=== PATIENT | male | born 1975 | race Two or more races ===

== ENCOUNTER 2017-05-22 23:40 | Emergency (ER) | payer SELFPAY ==
[2017-05-22 23:52] VITALS: BP 169/107
[2017-05-22] MEDS ORDERED: Take Home: Amoxicillin/Clavulanate K 875-125 MG Tab, 2 Tab Pack PO ONE (23:58)
--- NOTE | 2017-05-23 00:15 | EDM.PDOC ---
ED HPI GENERAL MEDICAL PROBLEM - General Chief Complaint: ENT Problem Stated Complaint: congestion, dental pain Time Seen by Provider: 05/22/17 23:52 Source of Information: Reports: Patient History Limitations: Reports: No Limitations - History of Present Illness INITIAL COMMENTS - FREE TEXT/NARRATIVE: Pt. states that he has been experiencing dental pain and sinus congestion for several weeks. He has not been seen in the clinic. He denies any fever or chills. No weakness. He states that he is experiencing maxillary/upper dental and frontal sinus pain for some time. He states that his mucous is greenish in color. He denies any cough or sore throat. No abdominal pain. No nausea, vomiting, or diarrhea. Duration: Week(s):, Getting Worse Location: Reports: Face, Other (mouth) Quality: Reports: Throbbing Severity: Moderate Right Lower Tooth/Teeth Pain Score (Numeric/FACES): 6 - Related Data Allergies Allergy/AdvReac Type Severity Reaction Status Date / Time No Known Drug Allergies Allergy Other Verified 05/22/17 23:44 Home Meds: Home Meds . [No Known Home Meds] 03/26/16 [History] Past Medical History - Past Health History Medical/Surgical History: Denies Medical/Surgical History Other HEENT History: nka Other Gastrointestinal History: none Social & Family History - Tobacco Use Smoking Status *Q: Current Some Day Smoker Years of Tobacco use: 29 Packs/Tins Daily: 0.5 Used Tobacco, but Quit: No Second Hand Smoke Exposure: Yes - Alcohol Use Days Per Week of Alcohol Use: 0 Number of Drinks Per Day: 1 Total Drinks Per Week: 0 - Recreational Drug Use Recreational Drug Use: No ED ROS ENT - Review of Systems Review Of Systems: See Below Constitutional: Reports: No Symptoms HEENT: Reports: Dental Pain, Sinus Problem Respiratory: Reports: No Symptoms Cardiovascular: Reports: No Symptoms Endocrine: Reports: No Symptoms GI/Abdominal: Reports: No Symptoms : Reports: No Symptoms Musculoskeletal: Reports: No Symptoms Skin: Reports: No Symptoms Neurological: Reports: No Symptoms Psychiatric: Reports: No Symptoms Hematologic/Lymphatic: Reports: No Symptoms Immunologic: Reports: No Symptoms ED EXAM, ENT - Physical Exam Exam: See Below Exam Limited By: No Limitations General Appearance: Alert, WD/WN, No Apparent Distress Eye Exam: Bilateral Eye: EOMI, Normal Fundi, Normal Inspection Ears: Normal External Exam, Normal Canal, Hearing Grossly Normal, Normal TMs Nose: Nasal Tenderness, Injected Turbinates Mouth/Throat: Normal Inspection, Dental Pain, Dental Tenderness, Other (severe dental caries) Head: Atraumatic, Normocephalic, Facial Tenderness Neck: Normal Inspection, Supple, Non-Tender, Full Range of Motion Respiratory/Chest: No Respiratory Distress, Lungs Clear, Normal Breath Sounds, No Accessory Muscle Use, Chest Non-Tender Cardiovascular: Normal Peripheral Pulses, Regular Rate, Rhythm, No Edema, No Gallop, No JVD, No Murmur, No Rub GI/Abdominal: Normal Bowel Sounds, Soft, Non-Tender, No Organomegaly, No Distention, No Abnormal Bruit, No Mass Back: Normal Inspection, Full Range of Motion Extremities: Normal Inspection, Normal Range of Motion, Non-Tender, No Pedal Edema, Normal Capillary Refill Neurological: Alert, Oriented, CN II-XII Intact, Normal Cognition, Normal Gait, Normal Reflexes, No Motor/Sensory Deficits Psychiatric: Normal Affect, Normal Mood Skin: Warm, Dry, Intact, Normal Color, No Rash Course - Vital Signs Last Recorded V/S: Last Vital Signs Temp 36.7 C 05/22/17 23:45 Pulse 89 05/22/17 23:45 Resp 16 05/22/17 23:45 BP 169/107 H 05/22/17 23:51 Pulse Ox 98 05/22/17 23:45 - Orders/Labs/Meds Meds: Medications Discontinued Medications Generic Name Dose Route Start Last Admin Trade Name Freq PRN Reason Stop Dose Admin Amoxicillin/Clavulanate Potassium 1 packet 05/22/17 23:58 05/23/17 00:02 Take Home: Amox/Clavulanate 875-12, 2 Tab Pac PO 05/22/17 23:59 1 packet ONETIME ONE Administration Departure - Departure Time of Disposition: 00:10 Disposition: Home, Self-Care 01 Condition: Fair Clinical Impression: Dental caries, Dental abscess, Dental caries extending into dentin - Discharge Information Instructions: Dental Caries, [id number] Forms: ED Department Discharge Additional Instructions: Make an appointment with your dentist as soon as possible. Tell them that you were in the ER and that you need your teeth extracted. Augmentin 875mg twice daily for 10 days. Ibuprofen 800mg every 8 hours.
== END 2017-05-23 00:10 | disposition home or self-care (01) ==
LOC: VM.ED 23:40
DX: K04.7 Periapical abscess without sinus (principal); K02.9 Dental caries, unspecified; F17.210 Nicotine dependence, cigarettes, uncomplicated
CPT/HCPCS: 99283; A9270

== ENCOUNTER 2017-09-24 20:59 | Emergency (ER) | payer OTHER | END 2017-09-24 21:30 | disposition home or self-care (01) | LOC: VM.ED 20:59 | DX: Z53.21 Procedure and treatment not carried out due to patient leaving prior to being seen by health care provider (principal) ==

== ENCOUNTER 2017-12-28 14:00 | Emergency (ER) | payer MEDICAID, OTHER ==
[2017-12-28] MEDS ORDERED: dimenhyDRINATE 50 MG Tab PO ONE (14:10)
[2017-12-28] MEDS ORDERED: Prochlorperazine 10 MG/2 ML SDV IV ONE (14:37)
[2017-12-28] MEDS ORDERED: Lactated Ringers 1,000 ML IV SCH (14:45)
[2017-12-28 14:55] LABS: CHLORIDE,CL 104 mmol/L (98-107); SODIUM,NA 139 mmol/L (136-145)
[2017-12-28 14:57] LABS: ANION GAP 19.4 mmol/L (10-20)
--- NOTE | 2017-12-28 16:16 | EDM.PDOC ---
ED HPI GENERAL MEDICAL PROBLEM - General Chief Complaint: General Stated Complaint: DIZZINESS Time Seen by Provider: 12/28/17 14:05 Source of Information: Reports: Patient, EMS, EMS Notes Reviewed History Limitations: Reports: No Limitations - History of Present Illness INITIAL COMMENTS - FREE TEXT/NARRATIVE: Pt. presents to ER with complaints of acute onset severe vertigo, nausea, and vomiting. He has also had a low grade headache since this AM. He denies any acute trauma. No recent illness. He denies any chest pain or shortness of breath. Denies any weakness. No diarrhea.Denies any fever or chills. Onset: Today Duration: Constant, Getting Worse Location: Reports: Head, Generalized Severity: Severe Improves with: Reports: Rest Worsens with: Reports: Movement Associated Symptoms: Reports: Headaches, Nausea/Vomiting. Denies: Fever/Chills , Malaise, Syncope Headache Pain Score (Numeric/FACES): 5 - Related Data Allergies Allergy/AdvReac Type Severity Reaction Status Date / Time No Known Drug Allergies Allergy Other Verified 12/28/17 14:17 Home Meds: Home Meds Lisinopril 10 mg PO DAILY 12/28/17 [History] Past Medical History - Past Health History Medical/Surgical History: Denies Medical/Surgical History Other HEENT History: nka Cardiovascular History: Reports: Hypertension Other Gastrointestinal History: none ED ROS GENERAL - Review of Systems Review Of Systems: See Below Constitutional: Reports: No Symptoms HEENT: Reports: Vertigo. Denies: Vision Change Respiratory: Reports: No Symptoms Cardiovascular: Reports: No Symptoms Endocrine: Reports: No Symptoms GI/Abdominal: Reports: Nausea, Vomiting : Reports: No Symptoms Musculoskeletal: Reports: No Symptoms Skin: Reports: No Symptoms Neurological: Reports: No Symptoms Psychiatric: Reports: No Symptoms Hematologic/Lymphatic: Reports: No Symptoms Immunologic: Reports: No Symptoms ED EXAM, GENERAL - Physical Exam Exam: See Below Exam Limited By: No Limitations General Appearance: Alert, WD/WN, No Apparent Distress Eye Exam: Bilateral Eye: EOMI, Normal Fundi, Normal Inspection, Nystagmus (R beating horizontal nystagmus), PERRL Ears: Normal External Exam, Normal Canal, Hearing Grossly Normal, Normal TMs Nose: Normal Inspection, Normal Mucosa, No Blood Throat/Mouth: Normal Inspection, Normal Lips, Normal Teeth, Normal Gums, Normal Oropharynx, Normal Voice, No Airway Compromise Head: Atraumatic, Normocephalic Neck: Normal Inspection, Supple, Non-Tender, Full Range of Motion Respiratory/Chest: No Respiratory Distress, Lungs Clear, Normal Breath Sounds, No Accessory Muscle Use, Chest Non-Tender Cardiovascular: Normal Peripheral Pulses, Regular Rate, Rhythm, No Edema, No Gallop, No JVD, No Murmur, No Rub Peripheral Pulses: 4+: Radial (L), Radial (R) GI/Abdominal: Normal Bowel Sounds, Soft, Non-Tender, No Organomegaly, No Distention, No Abnormal Bruit, No Mass (Male) Exam: Deferred Rectal (Males) Exam: Deferred Back Exam: Normal Inspection, Full Range of Motion, NT Extremities: Normal Inspection, Normal Range of Motion, Non-Tender, Normal Capillary Refill, No Pedal Edema Neurological: Alert, Oriented, CN II-XII Intact, Normal Cognition, Normal Gait, Normal Reflexes, No Motor/Sensory Deficits Psychiatric: Normal Affect, Normal Mood Skin Exam: Warm, Dry, Intact, Normal Color, No Rash EKG INTERPRETATION Rhythm: NSR [place]: Normal P-Wave: Present QRS: Normal ST-T: Normal QT: Normal Course - Vital Signs Last Recorded V/S: Last Vital Signs Temp 36.0 C 12/28/17 14:05 Pulse 99 12/28/17 14:05 Resp 18 12/28/17 14:05 BP 133/69 12/28/17 14:05 Pulse Ox 98 12/28/17 14:05 - Orders/Labs/Meds Orders: Active Orders 24 hr Category Date Time Status EKG Documentation Completion [RC] STAT Care 12/28/17 14:05 Active Head wo Cont [CT] Stat Exams 12/28/17 14:05 Taken Lactated Ringers [Ringers, Lactated] 1,000 ml Med 12/28/17 14:45 Active IV ASDIRECTED Medication Orders Lactated Ringer's (Ringers, Lactated) 1,000 mls @ 500 mls/hr IV ASDIRECTED JACQUELINE Last Admin: 12/28/17 14:30 Dose: 500 mls/hr Labs: Laboratory Tests 12/28/17 12/28/17 12/28/17 Range/Units 14:30 14:30 14:30 WBC 18.0 H (4.0-10.0) x10^3/uL RBC 5.92 (4.5-6.0) x10^6/uL Hgb 17.7 D (14.0-18.0) g/dL Hct 50.2 (40.0-52.0) % MCV 84.8 (78.0-93.0) fL MCH 29.9 (26.0-32.0) pg MCHC 35.3 (32.0-36.0) g/dL RDW Coeff of Ann Marie 14.9 (10.0-15.0) % Plt Count 250 (130-400) x10^3/uL Add Manual Diff Yes Neutrophils % (Manual) 41 L (50-80) % Lymphocytes % (Manual) 44 (25-50) % Atypical Lymphs % 1 H (0) % Monocytes % (Manual) 8 (2-11) % Eosinophils % (Manual) 5 H (0-4) % Basophils % (Manual) 1 (0-1) % Platelet Estimate Adequate PT 10.6 (9.6-11.4) SEC INR 1.0 L (2.0-3.5) Sodium 139 (136-145) mmol/L Potassium 3.4 L (3.5-5.1) mmol/L Chloride 104 (98-107) mmol/L Carbon Dioxide 19 L (21-32) mmol/L Anion Gap 19.4 (10-20) mmol/L BUN 19 H (7-18) mg/dL Creatinine 1.1 (0.70-1.30) mg/dL Est Cr Clr Drug Dosing TNP Estimated GFR (MDRD) > 60 Glucose 137 H (74-106) mg/dL Calcium 8.5 (8.5-10.1) mg/dL Corrected Calcium 8.90 (8.5-10.1) mg/dL Total Bilirubin 0.3 (0.2-1.0) mg/dL AST 19 (15-37) U/L ALT 43 (16-63) U/L Alkaline Phosphatase 72 (46-116) U/L C-Reactive Protein 0.4 (<=0.9) mg/dL Total Protein 7.8 (6.4-8.2) g/dL Albumin 3.5 (3.4-5.0) g/dL Globulin 4.3 Albumin/Globulin Ratio 0.81 Meds: Medications Generic Name Dose Route Start Last Admin Trade Name Ignacio PRN Reason Stop Dose Admin Lactated Ringer's 1,000 mls @ 500 mls/hr 12/28/17 14:45 12/28/17 14:30 Ringers, Lactated IV 500 mls/hr ASDIRECTED JACQUELINE Administration Discontinued Medications Generic Name Dose Route Start Last Admin Trade Name Ignacio PRN Reason Stop Dose Admin Dimenhydrinate 50 mg 12/28/17 14:10 Driminate PO 12/28/17 14:11 ONETIME ONE Prochlorperazine Edisylate 10 mg 12/28/17 14:37 12/28/17 14:53 Compazine IV 12/28/17 14:38 10 mg ONETIME ONE Administration Departure - Departure Time of Disposition: 15:15 Disposition: Home, Self-Care 01 Condition: Good Clinical Impression: Vertigo - Discharge Information Instructions: Labyrinthitis Referrals: Jasmina Noe PA-C [Primary Care Provider] - Forms: ED Department Discharge Additional Instructions: Physical therapy appointment today at 3:45 Zofran 3mg ODT tablet every 8 hours as needed for nausea/vomiting If still continuing to have dizziness after treatment, you can try over the counter dimenhydrinate (dramamine) or meclizine. Make sure you check the label, bacause dramamine does make both. Follow-up in clinic in 10-14 days. - My Orders Last 24 Hours: My Active Orders 12/28/17 14:05 EKG Documentation Completion [RC] STAT Head wo Cont [CT] Stat 12/28/17 14:45 Lactated Ringers [Ringers, Lactated] 1,000 ml IV ASDIRECTED - Assessment/Plan Last 24 Hours: My Active Orders 12/28/17 14:05 EKG Documentation Completion [RC] STAT Head wo Cont [CT] Stat 12/28/17 14:45 Lactated Ringers [Ringers, Lactated] 1,000 ml IV ASDIRECTED Plan: Physical therapy appointment today at 3:45 Zofran 3mg ODT tablet every 8 hours as needed for nausea/vomiting If still continuing to have dizziness after treatment, you can try over the counter dimenhydrinate (dramamine) or meclizine. Make sure you check the label, bacause dramamine does make both. Follow-up in clinic in 10-14 days.
[2017-12-28 16:46] VITALS: BP 141/98
== END 2017-12-28 15:35 | disposition home or self-care (01) ==
LOC: VM.ED 14:00
DX: R42 Dizziness and giddiness (principal); R11.2 Nausea with vomiting, unspecified; I10 Essential (primary) hypertension; Z79.899 Other long term (current) drug therapy
CPT/HCPCS: 36415; 70450; 80053; 85025; 85610; 86140; 93005; 96361; 96374; 99284; J0780; J7120

== ENCOUNTER 2018-05-25 16:57 | Emergency (ER) | payer MEDICAID ==
[2018-05-25 17:07] VITALS: BP 151/95
[2018-05-25] MEDS ORDERED: cefTRIAXone 1 GM Vial IM ONE (17:27)
[2018-05-25] MEDS ORDERED: cefTRIAXone 1 GM, Lidocaine 1% 2.1 ML IM ONE ×2 (17:31)
--- NOTE | 2018-05-25 17:35 | EDM.PDOC ---
ED HPI GENERAL MEDICAL PROBLEM - General Chief Complaint: ENT Problem Stated Complaint: TOOTH Time Seen by Provider: 05/25/18 17:13 Source of Information: Reports: Patient History Limitations: Reports: No Limitations - History of Present Illness INITIAL COMMENTS - FREE TEXT/NARRATIVE: Patient presents with complaints of a tooth abscess lasting over 1 week. Was seen last week and given Augmentin twice daily. Tomorrow is his last day for this and the infection has not cleared. He also stated he popped a pus pocket on the upper right of his gum. No fevers, no headache, no chills. He did attempt to get into the clinic today, but was not able to get there before they closed. Onset: Gradual Duration: Other (infection not resolved) Location: Reports: Other (mouth) Quality: Reports: Other (drainage) Improves with: Reports: Medication Associated Symptoms: Reports: No Other Symptoms - Related Data Allergies Allergy/AdvReac Type Severity Reaction Status Date / Time No Known Drug Allergies Allergy Other Verified 05/25/18 17:09 Home Meds: Home Meds Lisinopril 20 mg PO DAILY 05/25/18 [History] atorvaSTATin [Lipitor] 10 mg PO BEDTIME 05/25/18 [History] Past Medical History - Past Health History Medical/Surgical History: Denies Medical/Surgical History Other HEENT History: nka Cardiovascular History: Reports: High Cholesterol, Hypertension Other Gastrointestinal History: none Social & Family History - Tobacco Use Smoking Status *Q: Current Every Day Smoker Years of Tobacco use: 30 Packs/Tins Daily: 1 ED ROS ENT - Review of Systems Review Of Systems: See Below Constitutional: Reports: No Symptoms HEENT: Reports: Other (tooth abscess and drainage) Respiratory: Reports: No Symptoms Cardiovascular: Reports: No Symptoms Endocrine: Reports: No Symptoms GI/Abdominal: Reports: No Symptoms : Reports: No Symptoms Musculoskeletal: Reports: No Symptoms Skin: Reports: No Symptoms Neurological: Reports: No Symptoms Psychiatric: Reports: No Symptoms Hematologic/Lymphatic: Reports: No Symptoms Immunologic: Reports: No Symptoms ED EXAM, ENT - Physical Exam Exam: See Below Exam Limited By: No Limitations General Appearance: Alert, WD/WN, No Apparent Distress Eye Exam: Bilateral Eye: EOMI Nose: Normal Inspection, Normal Mucousa, No Blood Mouth/Throat: Dental Abcess (abscess to upper right, first molar location, no pustule noted on inspection, painful to palpation), Gum Swelling Head: Atraumatic, Normocephalic Neck: Normal Inspection, Supple, Non-Tender, Full Range of Motion Course - Vital Signs Last Recorded V/S: Last Vital Signs Temp 36.7 C 05/25/18 17:05 Pulse 84 05/25/18 17:05 Resp 20 05/25/18 17:05 BP 151/95 H 05/25/18 17:05 Pulse Ox 98 05/25/18 17:05 - Orders/Labs/Meds Orders: Active Orders 24 hr Category Date Time Status Dietary Supplements [RC] BIDMEALS Care 05/25/18 17:28 Ordered cefTRIAXone [Rocephin] Med 05/25/18 17:27 Once 1 gm IM ONETIME ONE Departure - Departure Time of Disposition: 17:54 Disposition: Home, Self-Care 01 Condition: Good Clinical Impression: Tooth abscess - Discharge Information *PRESCRIPTION DRUG MONITORING PROGRAM REVIEWED*: Not Applicable *COPY OF PRESCRIPTION DRUG MONITORING REPORT IN PATIENT CARO: Not Applicable Instructions: Dental Abscess, [id number], Clindamycin capsules, Probiotics, Clostridium Difficile Infection, [id number] Referrals: Jasmina Noe PA-C [Primary Care Provider] - Additional Instructions: Plan 1. Take the clindamycin every 6 hours for 1 week 2. Follow up with primary care as needed for additional management. 3. Follow up with your dentist as well to address your dentition. 4. Eat yogurt 1-2 times per day, take probiotics as well to avoid C. Diff. a bacterial infection of the bowels due to antibiotic use. 5. Please call if you have any further questions or concerns. - Problem List & Annotations (1) Dental abscess SNOMED Code(s): 630674851 Code(s): K04.7 - PERIAPICAL ABSCESS WITHOUT SINUS Status: Acute Priority : Low Current Visit: Yes - Problem List Review Problem List Initiated/Reviewed/Updated: Yes - My Orders Last 24 Hours: My Active Orders 05/25/18 17:27 cefTRIAXone [Rocephin] 1 gm IM ONETIME ONE 05/25/18 17:28 Dietary Supplements [RC] BIDMEALS - Assessment/Plan Last 24 Hours: My Active Orders 05/25/18 17:27 cefTRIAXone [Rocephin] 1 gm IM ONETIME ONE 05/25/18 17:28 Dietary Supplements [RC] BIDMEALS Assessment:: dental abscess Plan: Plan 1. Take the clindamycin every 6 hours for 1 week 2. Follow up with primary care as needed for additional management. 3. Follow up with your dentist as well to address your dentition. 4. Eat yogurt 1-2 times per day, take probiotics as well to avoid C. Diff. a bacterial infection of the bowels due to antibiotic use. 5. Please call if you have any further questions or concerns.
== END 2018-05-25 17:54 | disposition home or self-care (01) ==
LOC: VM.ED 16:57
DX: K04.7 Periapical abscess without sinus (principal); I10 Essential (primary) hypertension; F17.210 Nicotine dependence, cigarettes, uncomplicated
CPT/HCPCS: 96372; 99282; J0696

== ENCOUNTER 2019-01-31 19:41 | Emergency (ER) | payer MEDICAID ==
--- NOTE | 2019-01-31 19:51 | EDM.PDOC ---
ED HPI GENERAL MEDICAL PROBLEM - General Chief Complaint: General Stated Complaint: TOOTH PAIN Time Seen by Provider: 01/31/19 19:43 Source of Information: Reports: Patient, Family, RN, RN Notes Reviewed History Limitations: Reports: No Limitations - History of Present Illness INITIAL COMMENTS - FREE TEXT/NARRATIVE: Patient presents to the ED at [facility] for the eval and treatment of dental pain and chronic dental abscess. Patient has a long standing history severe periodontal disease, chronic gingivitis, and dental abscess. Patient states his pain started a couple days ago. Pain is along the upper frontal jaw line. Patient states he has a sour taste in his mouth. He states his gums feel very tender. No fevers or chills. No focal neurological problems. Duration: Chronic - Related Data Allergies Allergy/AdvReac Type Severity Reaction Status Date / Time No Known Drug Allergies Allergy Other Verified 05/25/18 17:09 Home Meds: Home Meds Lisinopril 20 mg PO DAILY 05/25/18 [History] atorvaSTATin [Lipitor] 10 mg PO BEDTIME 05/25/18 [History] Clindamycin HCl 1 cap PO TID 10 Days #30 capsule 01/31/19 [Rx] predniSONE 1 tab PO BID 5 Days #10 tab 01/31/19 [Rx] Past Medical History - Past Health History Medical/Surgical History: Denies Medical/Surgical History Other HEENT History: nka Cardiovascular History: Reports: High Cholesterol, Hypertension Other Gastrointestinal History: none ED ROS GENERAL - Review of Systems Review Of Systems: See Below Constitutional: Denies: Fever, Chills HEENT: Reports: Dental Pain Respiratory: Denies: Shortness of Breath, Cough Cardiovascular: Denies: Chest Pain, Palpitations Skin: Reports: No Symptoms Neurological: Reports: No Symptoms ED EXAM, GENERAL - Physical Exam Exam: See Below Exam Limited By: No Limitations General Appearance: Alert, No Apparent Distress Throat/Mouth: Other (frontal incisors worn down to gum line; mild purulent foul smelling drainage) Neck: Supple Respiratory/Chest: No Respiratory Distress, Lungs Clear, Normal Breath Sounds Cardiovascular: Normal Peripheral Pulses, Regular Rate, Rhythm Neurological: Alert, Oriented Skin Exam: Warm, Dry, Intact, Normal Color Course - Orders/Labs/Meds Orders: Active Orders 24 hr Category Date Time Status Lidocaine 1% [Xylocaine-MPF 1%] Med 01/31/19 20:18 Once 5 ml INJECT ONETIME ONE Meds: Medications Discontinued Medications Generic Name Dose Route Start Last Admin Trade Name Ignacio PRN Reason Stop Dose Admin Ceftriaxone Sodium 2 gm 01/31/19 20:13 Rocephin IM 01/31/19 20:14 ONETIME ONE Departure - Departure Time of Disposition: 20:21 Disposition: Home, Self-Care 01 Condition: Good Clinical Impression: Dental abscess, Dental caries extending into dentin, Periodontal disease - Discharge Information *PRESCRIPTION DRUG MONITORING PROGRAM REVIEWED*: Not Applicable *COPY OF PRESCRIPTION DRUG MONITORING REPORT IN PATIENT CARO: Not Applicable Prescriptions: Clindamycin HCl 1 cap PO TID 10 Days #30 capsule predniSONE 1 tab PO BID 5 Days #10 tab Instructions: Dental Abscess Referrals: Jasmina Noe PA-C [Primary Care Provider] - Forms: ED Department Discharge Additional Instructions: 1. Stay well hydrated and rest 2. Take antibiotics for the full coarse, even if you are feeling better 3. Eat yogurt 4. Do warm salt water gargles 5. Tylenol only, no Advil 6. See your dentist or PCP as symptoms warrant - Problem List Review Problem List Initiated/Reviewed/Updated: Yes - My Orders Last 24 Hours: My Active Orders 01/31/19 20:18 Lidocaine 1% [Xylocaine-MPF 1%] 5 ml INJECT ONETIME ONE - Assessment/Plan Last 24 Hours: My Active Orders 01/31/19 20:18 Lidocaine 1% [Xylocaine-MPF 1%] 5 ml INJECT ONETIME ONE Assessment:: Dental abscess Periodontal disease with decay Chronic gingivitis Plan: 2 gram IM Rocephin given in ER. Will start patient on Clindamycin 300 mg TID for 10 days given severity of infection. Prednisone for inflammation and pain. Salt water gargles. Use antiseptic mouthwash. See Dentist ANGELA in [place].
[2019-01-31] MEDS ORDERED: cefTRIAXone 2 GM Vial IM ONE (20:13)
[2019-02-01 00:51] VITALS: BP 150/95; PULSE 94
== END 2019-01-31 20:43 | disposition home or self-care (01) ==
LOC: VM.ED 19:41
DX: K04.7 Periapical abscess without sinus (principal); K02.62 Dental caries on smooth surface penetrating into dentin; K05.6 Periodontal disease, unspecified; I10 Essential (primary) hypertension; E78.00 Pure hypercholesterolemia, unspecified; Z79.899 Other long term (current) drug therapy
CPT/HCPCS: 96372; 99282; J0696; J2001

== ENCOUNTER 2019-06-25 17:09 | Emergency (ER) | payer BC, MEDICAID ==
[2019-06-25] MEDS ORDERED: Ketorolac 60 MG/2 ML SDV IM ONE (17:25)
[2019-06-25] MEDS ORDERED: cefTRIAXone 1 GM Vial IM ONE (17:25)
[2019-06-25] MEDS ORDERED: Take Home: Amoxicillin/Clavulanate K 875-125 MG Tab, 2 Tab Pack PO ONE (17:28)
--- NOTE | 2019-06-25 17:30 | EDM.PDOC ---
ED HPI GENERAL MEDICAL PROBLEM - General Chief Complaint: ENT Problem Stated Complaint: INFECTED TOOTH Time Seen by Provider: 06/25/19 17:15 Source of Information: Reports: Patient, Family History Limitations: Reports: No Limitations - History of Present Illness INITIAL COMMENTS - FREE TEXT/NARRATIVE: Patient presents to ER with complaints of a tooth infection now spreading in to his face. He states he started noting discomfort in the tooth and to the gum area last weekend, has been waiting on a dental appointment in [facility] that accepts low income families. Started having more pain last evening. "noted a bubble in the cheek and when palpating it, had drainage in house that "tasted rotten". Today, swelling has increased over the day. Has chills. No fevers. No other concerns. Onset: Gradual Duration: Day(s):, Getting Worse Location: Reports: Face Quality: Reports: Throbbing Severity: Moderate Improves with: Reports: Medication Associated Symptoms: Reports: Fever/Chills. Denies: Chest Pain, Cough, Diaphoresis, Loss of Appetite, Nausea/Vomiting, Shortness of Breath Treatments [employer]: Reports: Acetaminophen - Related Data Allergies Allergy/AdvReac Type Severity Reaction Status Date / Time Seasonal Allergy Intermediate Other Uncoded 06/25/19 17:21 Home Meds: Home Meds Lisinopril 20 mg PO DAILY 05/25/18 [History] atorvaSTATin [Lipitor] 10 mg PO BEDTIME 02/01/19 [History] Past Medical History - Past Health History Medical/Surgical History: Denies Medical/Surgical History HEENT History: Reports: Other (See Below) Other HEENT History: nka Cardiovascular History: Reports: High Cholesterol, Hypertension Respiratory History: Reports: Other (See Below) Other Respiratory History: Snoring. Smoker since age 12 Gastrointestinal History: Reports: GERD Other Gastrointestinal History: none Genitourinary History: Reports: Other (See Below) Other Genitourinary History: Microscopic Hematuria Psychiatric History: Reports: Other (See Below) Other Psychiatric History: Smoker Endocrine/Metabolic History: Reports: Obesity/BMI 30+, Other (See Below) Other Endocrine/Metabolic History: Pre-Diabetes. Last A1C (02/08/2018) = 6.2 ED ROS ENT - Review of Systems Review Of Systems: See Below Constitutional: Reports: Chills, Malaise. Denies: Fever, Weakness, Decreased Appetite HEENT: Reports: Dental Pain. Denies: Rhinitis, Sinus Problem, Throat Pain, Vertigo Respiratory: Denies: Shortness of Breath, Cough Cardiovascular: Denies: Chest Pain, Edema, Lightheadedness Endocrine: Denies: Fatigue GI/Abdominal: Denies: Abdominal Pain, Nausea, Vomiting : Reports: No Symptoms Musculoskeletal: Reports: No Symptoms Neurological: Reports: Headache ED EXAM, ENT - Physical Exam Exam: See Below Exam Limited By: No Limitations General Appearance: Alert, WD/WN, No Apparent Distress Ears: Normal External Exam, Normal TMs Nose: Normal Inspection, Normal Mucousa, Nasal Discharge Mouth/Throat: Dental Abcess, Dental Pain (obvious dental caries), Dental Tenderness, Gum Swelling, Other (has facial swelling of the left cheek) Head: Normocephalic Neck: Normal Inspection, Supple, Non-Tender Respiratory/Chest: No Respiratory Distress, Lungs Clear, Normal Breath Sounds Cardiovascular: Regular Rate, Rhythm Neurological: Alert, Oriented Skin: Warm, Dry Departure - Departure Time of Disposition: 17:32 Disposition: Home, Self-Care 01 Condition: Good Clinical Impression: Dental abscess - Discharge Information *PRESCRIPTION DRUG MONITORING PROGRAM REVIEWED*: No *COPY OF PRESCRIPTION DRUG MONITORING REPORT IN PATIENT CARO: No Additional Instructions: 1. Rest 2. Push fluids 3. Soft foods 4. Augmentin 875 mg twice a day for 10 total days, start tomorrow. 5. Ibuprofen 600 mg with 500 mg Tylenol every 6 hours as needed for pain 6. Follow up with dentist.
[2019-06-25] MEDS ORDERED: Lidocaine 1% 2 ML ONE (17:38)
[2019-06-25 18:19] VITALS: BP 151/101; PULSE 87
== END 2019-06-25 18:19 | disposition home or self-care (01) ==
LOC: VM.ED 17:09
DX: K04.7 Periapical abscess without sinus (principal); I10 Essential (primary) hypertension; E78.00 Pure hypercholesterolemia, unspecified; K21.9 Gastro-esophageal reflux disease without esophagitis; Z79.899 Other long term (current) drug therapy; Z91.09 Other allergy status, other than to drugs and biological substances
CPT/HCPCS: 96372; 99283-25; A9270-GY; J0696; J1885; J2001

== ENCOUNTER 2020-02-10 19:45 | Emergency (ER) | payer BC, MEDICAID ==
[2020-02-10] MEDS ORDERED: GI Cocktail Oral Solution 30 ML PO ONE (20:00)
[2020-02-10] MEDS ORDERED: cloNIDine 0.1 MG Tab PO ONE (20:01)
--- NOTE | 2020-02-10 20:08 | EDM.PDOC ---
ED HPI GENERAL MEDICAL PROBLEM - General Chief Complaint: Chest Pain Stated Complaint: Dizzy / Chest Tightness Time Seen by Provider: 02/10/20 19:47 Source of Information: Reports: Patient History Limitations: Reports: No Limitations - History of Present Illness INITIAL COMMENTS - FREE TEXT/NARRATIVE: Patient comes into the emergency department with complaint of chest discomfort, dizzy and congestion. Patient states that his symptoms have been going on now greater than 1 week. He states that it has been progressively getting worse. Patient also states that they have been intermittent at times at the chest discomfort will go away they will return after he eats. He also states that if he is lying down the symptoms do progress and feel worse. Patient states that if he is walking a long distance he does become more short of breath and fatigue. He has not followed up with primary care regarding any of the above symptoms. He returns to the emergency department tonight for worsening chest discomfort that started approximately 1 hour prior to arrival to the emergency department as well as a chest congestion has progressively gotten worse.He describes a sensation as a burning sensation in the midsternal section does not radiate to the neck or the back. He denies any shortness of breath, Fever, diaphoresis, change in vision,Fever, diaphoresis, change in vision, Abdominal pain, genitourinary concerns, or peripheral edema. She also denies any shortness of breath at rest. Patient states he is had no other concerns or complaints. After initial examination the patient states that he has noticed after eating spicy foods he has severe burning sensation shortly after lasting 1-2 hours at times. Onset: Gradual Duration: Intermittent Quality: Reports: Burning Severity: Moderate Improves with: Reports: Immobilization, Movement Worsens with: Reports: Eating, Movement Associated Symptoms: Denies: Fever/Chills, Headaches, Loss of Appetite, Nausea/Vomiting, Rash, Seizure, Syncope, Weakness Mid - Chest Tightness Pain Score (Numeric/FACES): 5 - Related Data Allergies Allergy/AdvReac Type Severity Reaction Status Date / Time Seasonal Allergy Intermediate Other Uncoded 02/10/20 20:26 Home Meds: Home Meds Lisinopril 20 mg PO DAILY 05/25/18 [History] atorvaSTATin [Lipitor] 10 mg PO BEDTIME 02/01/19 [History] Doxycycline [Vibra-Tabs] 100 mg PO BID 6 Days #13 tablet 02/10/20 [Rx] Past Medical History - Past Health History Medical/Surgical History: Denies Medical/Surgical History HEENT History: Reports: Other (See Below) Other HEENT History: nka Cardiovascular History: Reports: High Cholesterol, Hypertension Respiratory History: Reports: Other (See Below) Other Respiratory History: Snoring. Smoker since age 12 Gastrointestinal History: Reports: GERD Other Gastrointestinal History: none Genitourinary History: Reports: Other (See Below) Other Genitourinary History: Microscopic Hematuria Psychiatric History: Reports: Other (See Below) Other Psychiatric History: Smoker Endocrine/Metabolic History: Reports: Obesity/BMI 30+, Other (See Below) Other Endocrine/Metabolic History: Pre-Diabetes. Last A1C (02/08/2018) = 6.2 ED ROS GENERAL - Review of Systems Review Of Systems: Comprehensive ROS is negative, except as noted in HPI. Constitutional: Denies: Fever, Chills, Malaise, Weakness, Fatigue, Decreased Appetite, Weight Loss HEENT: Reports: No Symptoms Respiratory: Reports: No Symptoms Cardiovascular: Reports: Chest Pain Endocrine: Reports: No Symptoms GI/Abdominal: Reports: No Symptoms : Reports: No Symptoms Musculoskeletal: Reports: No Symptoms Skin: Reports: No Symptoms Neurological: Reports: No Symptoms Psychiatric: Reports: Anxiety Hematologic/Lymphatic: Reports: No Symptoms Immunologic: Reports: No Symptoms ED EXAM, GENERAL - Physical Exam Exam: See Below Exam Limited By: No Limitations General Appearance: Alert, WD/WN, No Apparent Distress, Anxious Eye Exam: Bilateral Eye: EOMI, PERRL Head: Atraumatic, Normocephalic Cardiovascular: Normal Peripheral Pulses, Regular Rate, Rhythm, Other (mid sternal burning pain- non palpable pain. No redness, swelling, or warmth noted) Peripheral Pulses: 4+: Radial (L), Radial (R), Dorsalis Pedis (L), Dorsalis Pedis (R) GI/Abdominal: Normal Bowel Sounds, Soft, Non-Tender, No Distention, No Abnormal Bruit Back Exam: Normal Inspection, Full Range of Motion Extremities: Normal Inspection, Normal Range of Motion, Non-Tender, Normal Capil bryce Refill Neurological: Oriented, CN II-XII Intact, Normal Gait Psychiatric: Normal Affect, Anxious Skin Exam: Warm, Dry, Intact Course - Vital Signs Last Recorded V/S: Last Vital Signs Temp 36.6 C 02/10/20 19:50 Pulse 102 H 02/10/20 19:50 Resp 18 02/10/20 19:50 BP 148/91 H 02/10/20 20:56 Pulse Ox 99 02/10/20 19:50 - Orders/Labs/Meds Orders: Active Orders 24 hr Category Date Time Status EKG Documentation Completion [RC] STAT Care 02/10/20 19:59 Active Labs: Laboratory Tests 02/10/20 02/10/20 02/10/20 Range/Units 19:55 20:15 20:15 WBC 12.3 H (4.0-10.0) x10^3/uL RBC 5.78 (4.5-6.0) x10^6/uL Hgb 17.0 (14.0-18.0) g/dL Hct 48.8 (40.0-52.0) % MCV 84.4 (78.0-93.0) fL MCH 29.4 (26.0-32.0) pg MCHC 34.8 (32.0-36.0) g/dL RDW Coeff of Ann Marie 14.5 (10.0-15.0) % Plt Count 262 (130-400) x10^3/uL Neut % (Auto) 54.7 (50.0-80.0) % Lymph % (Auto) 34.9 (25.0-50.0) % [place] % (Auto) 7.0 (2.0-11.0) % Eos % (Auto) 3.1 (0.0-4.0) % Baso % (Auto) 0.3 (0.2-1.2) % Sodium 136 (136-145) mmol/L Potassium 3.9 (3.5-5.1) mmol/L Chloride 99 (98-107) mmol/L Carbon Dioxide 25 (21-32) mmol/L Anion Gap 15.9 (10-20) mmol/L BUN 17 (7-18) mg/dL Creatinine 1.2 (0.70-1.30) mg/dL Est Cr Clr Drug Dosing 73.63 mL/min Estimated GFR (MDRD) > 60 Glucose 132 H (74-106) mg/dL Calcium 8.9 (8.5-10.1) mg/dL Corrected Calcium 9.06 (8.5-10.1) mg/dL Total Bilirubin 0.3 (0.2-1.0) mg/dL AST 21 (15-37) U/L ALT 39 (16-63) U/L Alkaline Phosphatase 72 (46-116) U/L Creatine Kinase 124 (39-308) U/L Troponin I < 0.017 (<=0.056) ng/mL Total Protein 7.9 (6.4-8.2) g/dL Albumin 3.8 (3.4-5.0) g/dL Globulin 4.1 Albumin/Globulin Ratio 0.93 SARS CoV-2 RNA Rapid STONE Negative (NEGATIVE) Meds: Medications Discontinued Medications Generic Name Dose Route Start Last Admin Trade Name Freq PRN Reason Stop Dose Admin Al Hydroxide/Mg Hydroxide 30 ml 02/10/20 20:00 02/10/20 20:05 Gi Cocktail PO 02/10/20 20:01 30 ml ONETIME ONE Administration Clonidine HCl 0.1 mg 02/10/20 20:01 02/10/20 20:05 Catapres PO 02/10/20 20:02 0.1 mg ONETIME ONE Administration Doxycycline Hyclate 100 mg 02/10/20 21:00 Vibramycin PO 02/10/20 21:01 ONETIME ONE Departure - Departure Time of Disposition: 21:05 Disposition: Home, Self-Care 01 Condition: Good Clinical Impression: Community acquired pneumonia Qualifiers: Laterality: left Lung location: lower lobe of lung Qualified Code(s): J18.9 - Pneumonia, unspecified organism Prescriptions: Doxycycline [Vibra-Tabs] 100 mg PO BID 6 Days #13 tablet Instructions: Community-Acquired Pneumonia, Adult, Doxycycline tablets or capsules, Probiotics Referrals: Jasmina Noe PA-C [Primary Care Provider] - Forms: ED Department Discharge Additional Instructions: 1. rest 2. increase your water intake 3. Take all antibiotics as prescribed even if feeling better 4. Take a probiotic while on antibiotics to help promote healthy GI motility 5. Activity and diet as tolerated 6. Can use Ibuprofen and tylenol for any fever or discomfort 7. Follow up with your PCP or return if symptoms progress or worsen 8. Education provided to you regarding your illness, probiotics, antibiotic prescribed 9. Call with any questions or concerns Sepsis Event Note (ED) - Focused Exam Vital Signs: Vital Signs Temp Pulse Resp BP BP Pulse Ox 02/10/20 20:56 148/91 H 02/10/20 20:05 176/108 H 02/10/20 19:50 36.6 C 102 H 18 190/108 H 99 - My Orders Last 24 Hours: My Active Orders 02/10/20 19:59 EKG Documentation Completion [RC] STAT - Assessment/Plan Last 24 Hours: My Active Orders 02/10/20 19:59 EKG Documentation Completion [RC] STAT Assessment:: 1. chest pain 2. dizziness 3. chest congestion Plan: 1. Labs completed in the ER. Results reviewed with the patient 2. IV initiated in the emergency department 3. IV fluids provided 4. Chest xray completed in ER. Results reviewed with the patient 5. GI cocktail given in the ER.- much relief noted within 15 minutes of taking cocktail. Pain completely gone. 6. Clonidine 0.1mg PO given in the ER for anxiety and elevated BP. 7. EKG was completed in ER. Results reviewed with the patient 8. Patient and nursing staff was updated regarding the plan of care
[2020-02-10 20:33] VITALS: PULSE 102
[2020-02-10 20:49] LABS: CHLORIDE,CL 99 mmol/L (98-107); SODIUM,NA 136 mmol/L (136-145)
[2020-02-10 20:51] LABS: ANION GAP 15.9 mmol/L (10-20)
[2020-02-10 20:56] VITALS: BP 148/91
--- NOTE | 2020-02-10 20:59 | CR ---
[id number] RAD/RAD Chest Portable EXAM: PORTABLE CHEST INDICATION: CHEST DISCOMFORT COMPARISON: None. DISCUSSION: Mild linear scarring or atelectasis in the left lung base. No definite infiltrates. Normal heart size. No effusions. IMPRESSION: 1. Mild linear scarring or atelectasis in the left lung base. Alex Wheatley MD 02/10/20 [id number] Thank you for allowing us to participate in the care of your patient.
[2020-02-10] MEDS ORDERED: Doxycycline 100 MG Cap PO ONE (21:00)
== END 2020-02-10 21:20 | disposition home or self-care (01) ==
LOC: VM.ED 19:45
DX: J18.9 Pneumonia, unspecified organism (principal); R42 Dizziness and giddiness; I10 Essential (primary) hypertension; E78.00 Pure hypercholesterolemia, unspecified; E66.9 Obesity, unspecified; Z68.39 Body mass index [BMI] 39.0-39.9, adult; F17.200 Nicotine dependence, unspecified, uncomplicated; Z91.048 Other nonmedicinal substance allergy status; Z79.899 Other long term (current) drug therapy; Z20.828 Contact with and (suspected) exposure to other viral communicable diseases
CPT/HCPCS: 36415; 71045; 80053; 82550; 84484; 85025; 93005; 99285-25; A9270-GY; U0002

== ENCOUNTER 2020-03-03 16:27 | Emergency (ER) | payer MEDICAID, OTHER ==
[2020-03-03] MEDS ORDERED: Aspirin 81 MG Tab.Chew PO ONE (17:11)
[2020-03-03 17:21] VITALS: BP 123/87; PULSE 102
[2020-03-03] MEDS ORDERED: GI Cocktail Oral Solution 30 ML PO ONE (17:46)
--- NOTE | 2020-03-03 17:51 | CR ---
[id number] RAD/RAD Chest PA And Lateral EXAM: RAD Chest PA And Lateral INDICATION: CHEST PAIN. COMPARISON: February 10, 2020. DISCUSSION: Cardiomediastinal silhouette is normal in size and contour. Lungs are clear. No pleural effusion or pneumothorax. Scarring in the left lung base. IMPRESSION: No acute findings. Ismael Guzman MD 03/03/20 [id number] Thank you for allowing us to participate in the care of your patient.
--- NOTE | 2020-03-03 17:55 | EDM.PDOC ---
ED HPI GENERAL MEDICAL PROBLEM - General Chief Complaint: Chest Pain Stated Complaint: ESOPHAGUS PAIN Time Seen by Provider: 03/03/20 17:54 Source of Information: Reports: Patient History Limitations: Reports: No Limitations - History of Present Illness INITIAL COMMENTS - FREE TEXT/NARRATIVE: Patient comes emergency department today from home with complaints of esophageal pain. This patient relates that he has had a longstanding history of heartburn. He has been on omeprazole for the last 7 days and his heartburn is felt much better. Over the last 2 to 3 days he has had increasing burning tightness that starts in his epigastric region and radiates up to his mid sternum. He relates that it feels somewhat different than his heartburn in the past. The pain does not radiate anywhere else. The pain is a constant burning heaviness sensation in his mid sternum. He was recently treated with doxycycline for pneumonia. He has some shortness of breath but is much improved. No fever no chills. No cough or congestion. No nausea vomiting or abdominal pain. No hematuria dysuria or urinary frequency. No black or tarry stools no diarrhea. He has been tested for Covid multiple times but he is still concerned that he may have it. He has not tried anything for the chest pain prior to arrival. NO COVID exposure no COVID symptoms. Mid-Sternal Chest Pain Score (Numeric/FACES): 7 - Related Data Allergies Allergy/AdvReac Type Severity Reaction Status Date / Time Seasonal Allergy Intermediate Other Uncoded 03/03/20 17:13 Home Meds: Home Meds Lisinopril 20 mg PO DAILY 05/25/18 [History] atorvaSTATin [Lipitor] 10 mg PO BEDTIME 02/01/19 [History] Sucralfate [Carafate] 1 gm PO QIDACANDBED #120 tablet 03/03/20 [Rx] Past Medical History - Past Health History Medical/Surgical History: Denies Medical/Surgical History HEENT History: Reports: Other (See Below) Other HEENT History: nka Cardiovascular History: Reports: High Cholesterol, Hypertension Respiratory History: Reports: Other (See Below) Other Respiratory History: Snoring. Smoker since age 12 Gastrointestinal History: Reports: GERD Other Gastrointestinal History: none Genitourinary History: Reports: Other (See Below) Other Genitourinary History: Microscopic Hematuria Psychiatric History: Reports: Other (See Below) Other Psychiatric History: Smoker Endocrine/Metabolic History: Reports: Obesity/BMI 30+, Other (See Below) Other Endocrine/Metabolic History: Pre-Diabetes. Last A1C (02/08/2018) = 6.2 Social & Family History - Tobacco Use Tobacco Use Status *Q: Current Every Day Tobacco User Years of Tobacco use: 20 Packs/Tins Daily: 0.5 - Recreational Drug Use Recreational Drug Use: No ED ROS GENERAL - Review of Systems Review Of Systems: Comprehensive ROS is negative, except as noted in HPI. ED EXAM, GENERAL - Physical Exam Exam: See Below Exam Limited By: No Limitations General Appearance: Alert, WD/WN, No Apparent Distress, Anxious Eye Exam: Bilateral Eye: EOMI, PERRL Ears: Normal External Exam, Normal TMs Nose: Normal Inspection, Normal Mucosa Throat/Mouth: Normal Inspection, Normal Lips, Normal Teeth, Normal Gums, Normal Oropharynx, Normal Voice, No Airway Compromise Head: Atraumatic, Normocephalic Neck: Normal Inspection, Supple, Non-Tender, Full Range of Motion Respiratory/Chest: No Respiratory Distress, Lungs Clear, Normal Breath Sounds, No Accessory Muscle Use, Chest Non-Tender Cardiovascular: Normal Peripheral Pulses, Regular Rate, Rhythm GI/Abdominal: Normal Bowel Sounds, Soft, Non-Tender (Male) Exam: Deferred Rectal (Males) Exam: Deferred Back Exam: Normal Inspection, Full Range of Motion Extremities: Normal Inspection, Normal Range of Motion, Non-Tender, No Pedal Edema, Normal Capillary Refill Neurological: Alert, Oriented, Normal Cognition, Normal Gait, No Motor/Sensory Deficits Psychiatric: Normal Affect, Normal Mood Skin Exam: Warm, Dry, Intact, Normal Color, No Rash #1 Interpretation EKG Date: 03/03/20 Time: 17:02 Rhythm: NSR Rate (Beats/Min): 88 [place]: Normal P-Wave: Present QRS: Normal ST-T: Normal QT: Normal Course - Vital Signs Last Recorded V/S: Last Vital Signs Temp 98 F 03/03/20 16:50 Pulse 102 H 03/03/20 16:50 Resp 16 03/03/20 16:50 BP 123/87 03/03/20 16:50 Pulse Ox 98 03/03/20 16:50 - Orders/Labs/Meds Labs: Laboratory Tests 10/24/20 10/24/20 10/24/20 Range/Units 17:02 17:42 17:42 WBC 11.9 H (4.0-10.0) x10^3/uL RBC 5.85 (4.5-6.0) x10^6/uL Hgb 17.0 (14.0-18.0) g/dL Hct 49.7 (40.0-52.0) % MCV 85.0 (78.0-93.0) fL MCH 29.1 (26.0-32.0) pg MCHC 34.2 (32.0-36.0) g/dL RDW Coeff of Ann Marie 14.0 (10.0-15.0) % Plt Count 251 (130-400) x10^3/uL Neut % (Auto) 54.8 (50.0-80.0) % Lymph % (Auto) 35.4 (25.0-50.0) % [place] % (Auto) 7.1 (2.0-11.0) % Eos % (Auto) 2.4 (0.0-4.0) % Baso % (Auto) 0.3 (0.2-1.2) % Sodium 140 (136-145) mmol/L Potassium 4.0 (3.5-5.1) mmol/L Chloride 103 (98-107) mmol/L Carbon Dioxide 28 (21-32) mmol/L Anion Gap 13.0 (10-20) mmol/L BUN 20 H (7-18) mg/dL Creatinine 1.2 (0.70-1.30) mg/dL Est Cr Clr Drug Dosing 73.63 mL/min Estimated GFR (MDRD) > 60 Glucose 91 (74-106) mg/dL Calcium 9.1 (8.5-10.1) mg/dL Corrected Calcium 9.34 (8.5-10.1) mg/dL Total Bilirubin 0.3 (0.2-1.0) mg/dL AST 24 (15-37) U/L ALT 49 (16-63) U/L Alkaline Phosphatase 67 (46-116) U/L Troponin I < 0.017 (<=0.056) ng/mL C-Reactive Protein 0.3 (<=0.9) mg/dL Total Protein 7.7 (6.4-8.2) g/dL Albumin 3.7 (3.4-5.0) g/dL Globulin 4.0 Albumin/Globulin Ratio 0.93 SARS CoV-2 RNA Rapid STONE Negative (NEGATIVE) Meds: Medications Discontinued Medications Generic Name Dose Route Start Last Admin Trade Name Ignacio PRN Reason Stop Dose Admin Al Hydroxide/Mg Hydroxide 30 ml 03/03/20 17:46 03/03/20 17:56 Gi Cocktail PO 03/03/20 17:47 30 ml ONETIME ONE Administration Aspirin 324 mg 03/03/20 17:11 03/03/20 17:12 Aspirin PO 03/03/20 17:12 324 mg ONETIME ONE Administration - Radiology Interpretation Free Text/Narrative:: Chest x-ray per radiology shows no acute findings. - Re-Assessments/Exams Free Text/Narrative Re-Assessment/Exam: 03/03/20 20:03 Patient initially was given 324 of aspirin orally. His Covid test is negative. His EKG is a normal sinus rhythm without any ST elevation or depression when reviewed extemporaneously by myself. Labs are drawn. GI cocktail was given with complete resolution of the tightness and pain sensation that the patient had in his chest. Had this pain in his chest for the past couple of days and his troponin is negative less than 0.017. His chest x-ray is unremarkable. And he is completely asymptomatic following the GI cocktail. Despite him currently being on omeprazole you can still have some hypersecretory response and I reviewed the results of my concerns that maybe he just needs a little bit more treatment for his GERD. We will place him on Carafate 1 tablet 4 times a day for the next 28 days. He may consider having an EGD in the future as he struggles with quite a bit of heartburn on a regular basis and has for quite some time and never been evaluated that way. He is comfortable with this plan and his questions are answered. Departure - Departure Time of Disposition: 18:45 Disposition: Home, Self-Care 01 Clinical Impression: Non-cardiac chest pain Gastroesophageal reflux disease Qualifiers: Esophagitis presence: esophagitis presence not specified Qualified Code(s): K21.9 - Gastro-esophageal reflux disease without esophagitis Prescriptions: Sucralfate [Carafate] 1 gm PO QIDACANDBED #120 tablet Instructions: Indigestion, Else-pc-Scte, Nonspecific Chest Pain, Adult, [id number], Gastroesophageal Reflux Disease, Adult, [id number] Referrals: Jasmina Noe PA-C [Primary Care Provider] - Forms: ED Department Discharge Additional Instructions: Continue with the Omeprazole. Try OTC Maalox or Mylanta as needed for acute episodes like you have had the past few days. Add Carafate 1 tablet 4 times a day before meals and at bedtime. Rx to [facility]. Continue other previous therapies. Return to the ED if new or worsening symptoms. Follow up with PCP in the next 4-6 days if not improving sooner if worse. Sepsis Event Note (ED) - Evaluation Sepsis Screening Result: No Definite Risk - Focused Exam Vital Signs: Vital Signs Temp Pulse Resp BP Pulse Ox 03/03/20 16:50 98 F 102 H 16 123/87 98
[2020-03-03 18:26] LABS: CHLORIDE,CL 103 mmol/L (98-107); SODIUM,NA 140 mmol/L (136-145)
== END 2020-03-03 19:00 | disposition home or self-care (01) ==
LOC: VM.ED 16:27
DX: K21.9 Gastro-esophageal reflux disease without esophagitis (principal); E78.00 Pure hypercholesterolemia, unspecified; I10 Essential (primary) hypertension; E66.9 Obesity, unspecified; F17.210 Nicotine dependence, cigarettes, uncomplicated; K29.70 Gastritis, unspecified, without bleeding
CPT/HCPCS: 36415; 71046; 80053; 84484; 85025; 86140; 93005; 93010; 99284; 99285-25; A9270-GY; U0002

== ENCOUNTER 2020-03-22 12:50 | Emergency (ER) | payer MEDICAID ==
[2020-03-22] MEDS ORDERED: LORazepam 1 MG Tab PO ONE (13:04)
--- NOTE | 2020-03-22 13:04 | EDM.PDOCBH ---
ED HPI GENERAL MEDICAL PROBLEM - General Stated Complaint: PANIC ATTACK HAS BEEN IN CLOSE CONTACT WITH COVID Time Seen by Provider: 03/22/20 13:04 Source of Information: Reports: Patient History Limitations: Reports: No Limitations - History of Present Illness INITIAL COMMENTS - FREE TEXT/NARRATIVE: Patient comes emergency department today with complaints of anxiety and chest tightness. Just prior to arrival the patient found out the devastating news that his daughter was diagnosed with COVID-19. He immediately became anxious and had tightness in his chest and he had shortness of breath. He immediately had to leave the house to go outside and get pressure. He is very anxious and concerned over the COVID-19 infection. Over the past couple of months he has been tested anywhere from 25-30 times for COVID-19. He has never had any symptoms of it. Whenever he goes outside he make sure that he is well isolated when he returns home he sprays himself with a solution of 70% alcohol from head to toe on his clothes inside and outside and takes a bath in alcohol solution when he gets home as well. He is very anxious and concerned about the development of COVID-19 in his house as he has multiple generations of family living in his current situation. He has no shortness of breath difficulty breathing cough or congestion. No fever no chills. No loss of taste or smell. No abdominal pain nausea or vomiting. No hematuria dysuria or urinary frequency. No black or tarry stools. No diarrhea. He does have some tightness in his chest that developed immediately when he found out about the COVID-19 infection and his daughter. - Related Data Allergies Allergy/AdvReac Type Severity Reaction Status Date / Time Seasonal Allergy Intermediate Other Uncoded 03/22/20 13:23 Home Meds: Home Meds Lisinopril 20 mg PO DAILY 05/25/18 [History] atorvaSTATin [Lipitor] 10 mg PO BEDTIME 02/01/19 [History] Pantoprazole [ProTONIX] 40 mg PO DAILY 03/22/20 [History] hydrOXYzine HCL [Atarax] 50 mg PO Q8H PRN #12 tab 03/22/20 [Rx] Past Medical History - Past Health History Medical/Surgical History: Denies Medical/Surgical History HEENT History: Reports: Other (See Below) Other HEENT History: nka Cardiovascular History: Reports: High Cholesterol, Hypertension Respiratory History: Reports: Other (See Below) Other Respiratory History: Snoring. Smoker since age 12 Gastrointestinal History: Reports: GERD Other Gastrointestinal History: none Genitourinary History: Reports: Other (See Below) Other Genitourinary History: Microscopic Hematuria Psychiatric History: Reports: Other (See Below) Other Psychiatric History: Smoker Endocrine/Metabolic History: Reports: Obesity/BMI 30+, Other (See Below) Other Endocrine/Metabolic History: Pre-Diabetes. Last A1C (02/08/2018) = 6.2 ED ROS GENERAL - Review of Systems Review Of Systems: Comprehensive ROS is negative, except as noted in HPI. ED EXAM, BEHAVIORAL HEALTH - Physical Exam Exam: See Below Exam Limited By: No Limitations General Appearance: Alert, WD/WN, No Apparent Distress, Anxious Eye Exam: Bilateral Eye: EOMI, PERRL Ears: Normal External Exam Nose: Normal Inspection Throat/Mouth: Normal Inspection Head: Atraumatic, Normocephalic Neck: Normal Inspection, Supple, Non-Tender Respiratory/Chest: No Respiratory Distress, Lungs Clear, Normal Breath Sounds, No Accessory Muscle Use, Chest Non-Tender Cardiovascular: Normal Peripheral Pulses, Regular Rate, Rhythm GI/Abdominal: Normal Bowel Sounds, Soft, Non-Tender (Male) Exam: Deferred Rectal (Males) Exam: Deferred Back Exam: Normal Inspection, Full Range of Motion Extremities: Normal Inspection, Normal Range of Motion, Normal Capillary Refill Neurological: Alert, Normal Mood/Affect, CN II-XII Intact, Normal Cognition, Normal Reflexes, No Motor/Sensory Deficits, Oriented x 3 Psychiatric: Alert, Normal Cognition, Oriented, Restless, Other (Anxious very anxious. Moving constantly and eyes darting around the room. Restless. ) COURSE, BEHAVIORAL HEALTH COMP - Course Vital Signs: Last Vital Signs Temp 98.6 F 03/22/20 13:00 Pulse 112 H 03/22/20 13:00 Resp 14 03/22/20 13:00 BP 131/85 03/22/20 13:00 Pulse Ox 95 03/22/20 13:00 Orders, Labs, Meds: Medications Discontinued Medications Generic Name Dose Route Start Last Admin Trade Name Freq PRN Reason Stop Dose Admin Lorazepam 1 mg 03/22/20 13:04 03/22/20 13:18 Ativan PO 03/22/20 13:05 1 mg ONETIME ONE Administration Re-Assessment/Re-Exam: The patient initially was given a milligram of Ativan sublingually. Currently thereafter the patient felt much better. The tightness in his chest is resolved. His anxiety has resolved and almost completely gone. He is able to rest comfortably on the cot. This is clearly the sequelae and presentation of a panic attack as the patient is clearly quite anxious about the disease pr ocess of COVID-19. I will discharge him home at this time to ensure that he keeps quarantining which she is also close contact and he needs to be quarantining himself at home at this time and not being out in the public. We will give him some medication hydroxyzine for acute anxiety. Caution on sedation. He is comfortable with this plan and his questions are answered. Departure - Departure Time of Disposition: 14:03 Disposition: Home, Self-Care 01 Clinical Impression: Panic attack - Discharge Information Prescriptions: hydrOXYzine HCL [Atarax] 50 mg PO Q8H PRN #12 tab PRN Reason: Anxiety Instructions: Panic Attack, [id number] Referrals: Jasmina Noe PA-C [Primary Care Provider] - Forms: ED Department Discharge Additional Instructions: Home rest today. Make sure you are quarantining at home for your safety and others safety. You are now a close contact and will get guidance from the [facility] department for follow up. Hydroxyzine 1 tablet three times a day as needed for anxiety. Caution sedation. Rx to [facility]. Return to the ED if new or worsening symptoms. Follow up with PCP as needed. Sepsis Event Note (ED) - Focused Exam Vital Signs: Vital Signs Temp Pulse Resp BP Pulse Ox 03/22/20 13:00 98.6 F 112 H 14 131/85 95
[2020-03-22 13:17] VITALS: BP 131/85; PULSE 112
== END 2020-03-22 14:11 | disposition home or self-care (01) ==
LOC: VM.ED 12:50
DX: F41.0 Panic disorder [episodic paroxysmal anxiety] (principal); I10 Essential (primary) hypertension; E78.00 Pure hypercholesterolemia, unspecified; K21.9 Gastro-esophageal reflux disease without esophagitis; F17.210 Nicotine dependence, cigarettes, uncomplicated; E66.9 Obesity, unspecified; Z79.899 Other long term (current) drug therapy; Z91.048 Other nonmedicinal substance allergy status
CPT/HCPCS: 99283; 99284; A9270

== ENCOUNTER 2020-07-04 14:26 | Emergency (ER) | payer MEDICAID ==
[2020-07-04] MEDS: LORazepam 1 MG Tab PO ONE (15:02)
--- NOTE | 2020-07-04 15:06 | EDM.PDOC ---
ED HPI GENERAL MEDICAL PROBLEM - General Chief Complaint: General Stated Complaint: LIGHT HEADED DIZZY SOB Time Seen by Provider: 07/04/20 14:55 Source of Information: Reports: Patient - History of Present Illness INITIAL COMMENTS - FREE TEXT/NARRATIVE: Lencho is a 45 y/o male who comes to the ER with his for a wide array of symptoms. He reports yesterday he thought he was starting to get a cold so he took Dayquil and Nyquil and that did not help. He felt "weird" in his chest and not sure if he is wheezing or not. He does have prn Atatrax, but he did not try taking one when his sx happened yesterday. He did just finish a course of abx for an infected tooth yesterday. Patient denies fever. He reports that he never felt this way until his daughter was diagnosed with COVID in March, since then he thinks about this intermittently and worries about getting COVID. Her has not discussed this with his PCP. - Related Data Allergies Allergy/AdvReac Type Severity Reaction Status Date / Time Seasonal Allergy Intermediate Other Uncoded 07/04/20 14:41 Home Meds: Home Meds Lisinopril 20 mg PO DAILY 05/25/18 [History] atorvaSTATin [Lipitor] 10 mg PO BEDTIME 02/01/19 [History] Pantoprazole [ProTONIX] 40 mg PO DAILY 03/22/20 [History] hydrOXYzine HCL [Atarax] 50 mg PO Q8H PRN #12 tab 03/22/20 [Rx] Past Medical History - Past Health History Medical/Surgical History: Denies Medical/Surgical History HEENT History: Reports: Other (See Below) Other HEENT History: nka Cardiovascular History: Reports: High Cholesterol, Hypertension Respiratory History: Reports: Other (See Below) Other Respiratory History: Snoring. Smoker since age 12 Gastrointestinal History: Reports: GERD Other Gastrointestinal History: none Genitourinary History: Reports: Other (See Below) Other Genitourinary History: Microscopic Hematuria Psychiatric History: Reports: Other (See Below) Other Psychiatric History: Smoker Endocrine/Metabolic History: Reports: Obesity/BMI 30+, Other (See Below) Other Endocrine/Metabolic History: Pre-Diabetes. Last A1C (02/08/2018) = 6.2 ED ROS GENERAL - Review of Systems Review Of Systems: See Below Constitutional: Reports: Weakness HEENT: Reports: No Symptoms Respiratory: Reports: Wheezing Cardiovascular: Reports: Chest Pain Endocrine: Reports: No Symptoms GI/Abdominal: Reports: No Symptoms : Reports: No Symptoms Musculoskeletal: Reports: No Symptoms Skin: Reports: No Symptoms Neurological: Reports: No Symptoms Psychiatric: Reports: Anxiety Hematologic/Lymphatic: Reports: No Symptoms Immunologic: Reports: No Symptoms ED EXAM, GENERAL - Physical Exam Exam: See Below General Appearance: Alert, WD/WN, No Apparent Distress (Adult male) Ears: Normal External Exam, Normal Canal, Hearing Grossly Normal, Normal TMs Throat/Mouth: Normal Inspection, Normal Lips, Normal Gums, Normal Voice, Other (Poor dentitian and mulitple missing and decayed teeth noted.) Head: Atraumatic, Normocephalic Neck: Normal Inspection, Supple, Non-Tender Respiratory/Chest: No Respiratory Distress, Lungs Clear, Chest Non-Tender Cardiovascular: Regular Rate, Rhythm GI/Abdominal: Normal Bowel Sounds, Soft, Non-Tender (Male) Exam: Deferred Rectal (Males) Exam: Deferred Back Exam: Normal Inspection Extremities: Normal Inspection, Normal Range of Motion, Normal Capillary Refill Neurological: Alert, Oriented, CN II-XII Intact, Normal Cognition, Normal Gait, No Motor/Sensory Deficits Psychiatric: Anxious Skin Exam: Warm, Dry, Intact, Normal Color, No Rash #1 Interpretation EKG Date: 07/04/20 Time: 14:37 Rhythm: NSR Rate (Beats/Min): 93 [place]: Normal P-Wave: Present QRS: Normal ST-T: Normal QT: Normal Course - Vital Signs Text/Narrative:: 1451 The patient was seen by the [employer] SERVICE ESTIMATOR. EKG was done. His sx seemed to be all over the place and quite non-specific. He was given Lorazepam 1mg po x 1 dose. 1530 Patient resting quietly now on ER cart. States feels better. Will have patient follow up with his PCP to discuss daily anxiety meds along with the Atarax prn use. The patient and his are in agreement. Questions were answered. He was given written instructions and left the ER in stable condition. - Orders/Labs/Meds Meds: Medications Discontinued Medications Generic Name Dose Route Start Last Admin Trade Name Freq PRN Reason Stop Dose Admin Lorazepam 1 mg 07/04/20 15:00 07/04/20 15:02 Ativan PO 07/04/20 15:01 1 mg ONETIME ONE Administration Departure - Departure Time of Disposition: 15:31 Disposition: Home, Self-Care 01 Condition: Good Clinical Impression: Anxiety - Discharge Information Instructions: Managing Anxiety, Adult Referrals: Jasmina Noe PA-C [Primary Care Provider] - Forms: ED Department Discharge Additional Instructions: -Use the Atarax as needed for anxiety symptoms -Make an appt to see Jasmina Noe PA-C to discuss additional anxiety meds -Return to the ER as needed
[2020-07-04 18:43] VITALS: PULSE 95
[2020-07-04 18:52] VITALS: BP 142/86
== END 2020-07-04 15:40 | disposition home or self-care (01) ==
LOC: VM.ED 14:26 → SUPCPDRO 14:26 → VM.ED 15:40
DX: F41.9 Anxiety disorder, unspecified (principal); K02.9 Dental caries, unspecified; E78.00 Pure hypercholesterolemia, unspecified; I10 Essential (primary) hypertension; F17.200 Nicotine dependence, unspecified, uncomplicated; K21.9 Gastro-esophageal reflux disease without esophagitis; E66.9 Obesity, unspecified; Z68.39 Body mass index [BMI] 39.0-39.9, adult; Z91.048 Other nonmedicinal substance allergy status; Z79.899 Other long term (current) drug therapy
CPT/HCPCS: 93005; 93010; 99284; A9270

== ENCOUNTER 2020-07-06 20:25 | Emergency (ER) | payer MEDICAID ==
[2020-07-06] MEDS ORDERED: cefTRIAXone 1 GM, Lidocaine 1% 2.1 ML IM ONE ×2 (20:48)
--- NOTE | 2020-07-06 20:51 | EDM.PDOC ---
ED HPI GENERAL MEDICAL PROBLEM - General Chief Complaint: General Stated Complaint: cough Time Seen by Provider: 07/06/20 20:40 Source of Information: Reports: Patient History Limitations: Reports: No Limitations - History of Present Illness INITIAL COMMENTS - FREE TEXT/NARRATIVE: Patient comes into the emergency department complaints of a cough and right- sided upper chest discomfort. Patient states that has been going on for greater than 3 days. He states that he did develop a cough approximately 5 to 7 days ago. And approximately 3 days ago he started having a chest discomfort on the right upper side of his chest. He states that it has slowly progressed throughout the last 3 days. It is a constant sensation and is a heavy pressure. He states it has not gotten any worse or better. He denies any symptoms that make it worse or better. Patient states that he has been coughing up thick white and yellow phlegm. He also states that he is coughing quite excessively the last 3 days. Patient states he does have a history of pneumonia and has needed antibiotics in the past. Patient states he is fatigued, tired, low energy, decreased appetite, increased cough, and increased sputum production. Onset: Gradual Location: Reports: Chest Quality: Reports: Ache Improves with: Reports: None Worsens with: Reports: None Context: Reports: Activity Associated Symptoms: Reports: No Other Symptoms Right Chest Pain Score (Numeric/FACES): 2 - Related Data Allergies Allergy/AdvReac Type Severity Reaction Status Date / Time Seasonal Allergy Intermediate Other Uncoded 07/06/20 21:13 Home Meds: Home Meds Lisinopril 20 mg PO DAILY 05/25/18 [History] atorvaSTATin [Lipitor] 10 mg PO BEDTIME 02/01/19 [History] Pantoprazole [ProTONIX] 40 mg PO DAILY 03/22/20 [History] hydrOXYzine HCL [Atarax] 50 mg PO Q8H PRN #12 tab 03/22/20 [Rx] Azithromycin 500 mg PO DAILY #5 tablet 07/06/20 [Rx] Escitalopram [Lexapro] 10 mg PO DAILY 07/06/20 [History] predniSONE 20 mg PO BID 5 Days #10 tab 07/06/20 [Rx] Past Medical History - Past Health History Medical/Surgical History: Denies Medical/Surgical History HEENT History: Reports: Other (See Below) Other HEENT History: nka Cardiovascular History: Reports: High Cholesterol, Hypertension Respiratory History: Reports: Other (See Below) Other Respiratory History: Snoring. Smoker since age 12 Gastrointestinal History: Reports: GERD Other Gastrointestinal History: none Genitourinary History: Reports: Other (See Below) Other Genitourinary History: Microscopic Hematuria Psychiatric History: Reports: Anxiety, Other (See Below) Other Psychiatric History: Smoker Endocrine/Metabolic History: Reports: Obesity/BMI 30+, Other (See Below) Other Endocrine/Metabolic History: Pre-Diabetes. Last A1C (02/08/2018) = 6.2 ED ROS GENERAL - Review of Systems Review Of Systems: See Below Constitutional: Reports: Chills, Malaise, Weakness, Fatigue HEENT: Reports: No Symptoms Respiratory: Reports: Cough, Sputum Cardiovascular: Reports: No Symptoms Endocrine: Reports: No Symptoms GI/Abdominal: Reports: No Symptoms : Reports: No Symptoms Musculoskeletal: Reports: No Symptoms Skin: Reports: No Symptoms Neurological: Reports: No Symptoms Psychiatric: Reports: No Symptoms Hematologic/Lymphatic: Reports: No Symptoms Immunologic: Reports: No Symptoms ED EXAM, GENERAL - Physical Exam Exam: See Below Exam Limited By: No Limitations General Appearance: Alert, No Apparent Distress Throat/Mouth: Normal Inspection, Normal Lips, Normal Teeth, Normal Gums Head: Atraumatic, Normocephalic Neck: Normal Inspection, Supple, Non-Tender, Full Range of Motion Respiratory/Chest: No Respiratory Distress, No Accessory Muscle Use, Chest Non- Tender, Decreased Breath Sounds Cardiovascular: Normal Peripheral Pulses, Regular Rate, Rhythm, No Edema Back Exam: Normal Inspection, Full Range of Motion Extremities: Normal Inspection, Normal Range of Motion, Non-Tender, No Pedal Edema, Normal Capillary Refill Neurological: Alert, Oriented, CN II-XII Intact, Normal Cognition Psychiatric: Normal Affect, Normal Mood Skin Exam: Warm, Dry, Intact, Normal Color Course - Vital Signs Last Recorded V/S: Last Vital Signs Temp 37.1 C 07/06/20 20:50 Pulse 96 07/06/20 20:50 Resp 16 07/06/20 20:50 BP 145/85 H 07/06/20 20:50 Pulse Ox 95 07/06/20 20:50 - Orders/Labs/Meds Orders: Active Orders 24 hr Category Date Time Status Chest 1V Frontal [CR] Stat Exams 07/06/20 20:48 Taken COMPREHENSIVE METABOLIC PN,CMP [CHEM] Stat Lab 07/06/20 20:55 Received PRO B-TYPE NATRIUR PEPT,BNPPRO [CHEM] Stat Lab 07/06/20 20:55 Received Labs: Laboratory Tests 07/06/20 07/06/20 Range/Units 20:55 20:55 WBC 12.7 H (4.0-10.0) x10^3/uL RBC 5.94 (4.5-6.0) x10^6/uL Hgb 17.1 (14.0-18.0) g/dL Hct 50.0 (40.0-52.0) % MCV 84.2 (78.0-93.0) fL MCH 28.8 (26.0-32.0) pg MCHC 34.2 (32.0-36.0) g/dL RDW Coeff of Ann Marie 14.0 (10.0-15.0) % Plt Count 264 (130-400) x10^3/uL Neut % (Auto) 56.7 (50.0-80.0) % Lymph % (Auto) 34.4 (25.0-50.0) % Cole % (Auto) 5.8 (2.0-11.0) % Eos % (Auto) 2.8 (0.0-4.0) % Baso % (Auto) 0.3 (0.2-1.2) % Lactic Acid 1.5 (0.4-2.0) mmol/L Meds: Medications Discontinued Medications Generic Name Dose Route Start Last Admin Trade Name Dongq PRN Reason Stop Dose Admin Ceftriaxone Sodium Confirm 07/06/20 21:06 07/06/20 21:05 Rocephin Administered 07/06/20 21:07 Not Given Dose 1 gm .ROUTE .STK-MED ONE Ceftriaxone Sodium 1 gm/ 0 gm 07/06/20 20:48 07/06/20 21:02 Lidocaine HCl 2.1 ml IM 07/06/20 20:49 1 inj ONETIME ONE Administration Lidocaine HCl Confirm 07/06/20 21:05 07/06/20 21:05 Xylocaine-Mpf 1% Administered 07/06/20 21:06 Not Given Dose 5 ml .ROUTE .STK-MED ONE Departure - Departure Time of Disposition: 21:20 Disposition: Home, Self-Care 01 Condition: Good Clinical Impression: Community acquired pneumonia Qualifiers: Laterality: left Lung location: lower lobe of lung Qualified Code(s): J18.9 - Pneumonia, unspecified organism - Discharge Information *PRESCRIPTION DRUG MONITORING PROGRAM REVIEWED*: Not Applicable *COPY OF PRESCRIPTION DRUG MONITORING REPORT IN PATIENT CARO: Not Applicable Instructions: Community-Acquired Pneumonia, Adult, Ceftriaxone Injection, Probiotics, Azithromycin tablets Referrals: Jasmina Noe PA-C [Primary Care Provider] - Forms: ED Department Discharge Additional Instructions: 1. rest 2. increase your water intake 3. Take all antibiotics as prescribed even if feeling better 4. Take a probiotic while on antibiotics to help promote healthy GI motility 5. Activity and diet as tolerated 6. Can use Ibuprofen and tylenol for any fever or discomfort 7. Follow up with your PCP or return if symptoms progress or worsen 8. Education provided to you regarding your illness, probiotics, antibiotic prescribed 9. Call with any questions or concerns Sepsis Event Note (ED) - Focused Exam Vital Signs: Vital Signs Temp Pulse Resp BP Pulse Ox 07/06/20 20:50 37.1 C 96 16 145/85 H 95 - My Orders Last 24 Hours: My Active Orders 07/06/20 20:48 Chest 1V Frontal [CR] Stat 07/06/20 20:55 COMPREHENSIVE METABOLIC PN,CMP [CHEM] Stat PRO B-TYPE NATRIUR PEPT,BNPPRO [CHEM] Stat - Assessment/Plan Last 24 Hours: My Active Orders 07/06/20 20:48 Chest 1V Frontal [CR] Stat 07/06/20 20:55 COMPREHENSIVE METABOLIC PN,CMP [CHEM] Stat PRO B-TYPE NATRIUR PEPT,BNPPRO [CHEM] Stat Assessment:: 1. cough 2. fatigue 3. Pneumonia Plan: 1. Sepsis protocol initiated and followed 2. Labs completed in the ER. Results reviewed with the patient 3. Blood cultures completed 4. IV initiated in the emergency department 5. IV fluids provided 6. EKG completed in ER. 7. Rocephin 1gm given 8. Consultation completed with- 9. Patient will be transferred to a higher level of care needing further medical and/or surgical interventions 10. Patient and nursing staff was updated regarding the plan of care 11. Patient and family are agreeable to the above plan of care 12. All questions and concerns were addressed with the patient and family prior to discharge
[2020-07-06] MEDS ORDERED: cefTRIAXone 1 GM Vial ONE (21:06)
[2020-07-06 21:13] VITALS: BP 145/85; PULSE 96
[2020-07-06 21:33] LABS: ANION GAP 16.8 mmol/L (5-15); CHLORIDE,CL 102 mmol/L (98-107); SODIUM,NA 140 mmol/L (136-145)
--- NOTE | 2020-07-09 09:40 | CR ---
[id number] RAD/RAD Chest Portable EXAM: PORTABLE CHEST INDICATION: COUGH COMPARISON: March 03, 2020. DISCUSSION: Stable linear scarring left lung base. Bilateral symmetric hyperinflation suggests underlying chronic obstructive pulmonary disease. No acute infiltrates are identified. Normal heart size. No effusions. IMPRESSION: 1. No acute findings. Alex Wheatley MD 07/09/20 0939 Thank you for allowing us to participate in the care of your patient.
== END 2020-07-06 21:36 | disposition home or self-care (01) ==
LOC: VM.ED 20:25
DX: J18.9 Pneumonia, unspecified organism (principal); E78.00 Pure hypercholesterolemia, unspecified; I10 Essential (primary) hypertension; K21.9 Gastro-esophageal reflux disease without esophagitis; F17.200 Nicotine dependence, unspecified, uncomplicated; E66.9 Obesity, unspecified; Z68.32 Body mass index [BMI] 32.0-32.9, adult; Z91.048 Other nonmedicinal substance allergy status; Z79.899 Other long term (current) drug therapy
CPT/HCPCS: 36415; 71045; 80053; 83605; 83880; 85025; 96372; 99284; 99285-25; J0696

== ENCOUNTER 2020-07-07 12:21 | Emergency (ER) | payer MEDICAID ==
[2020-07-07 12:31] VITALS: BP 160/99; PULSE 93
--- NOTE | 2020-07-07 12:51 | EDM.PDOC ---
ED HPI GENERAL MEDICAL PROBLEM - General Chief Complaint: General Stated Complaint: COLD/SHAKY Time Seen by Provider: 07/07/20 12:25 Source of Information: Reports: Patient - History of Present Illness INITIAL COMMENTS - FREE TEXT/NARRATIVE: Patient comes into the emergency department complaints of shakiness/anxiety. Patient was seen in the emergency department the night previous with a diagnosis that of pneumonia. Patient states that he became nervous and anxious this morning after thinking about his diagnosis. He states that he is doing better today after receiving the medication/antibiotic last night in the emergency department. He had taken his antibiotic this morning things are going fairly well. He states that he got does head and became very nervous and anxious and shaky. He does want to be evaluated and see if everything was going okay. He denies any shortness of breath, chest pain, fever, nausea, vomiting, diarrhea, peripheral edema. He states that he does have a history of anxiety disorder and does have hydroxyzine as needed to help with his anxiety. He states he did not take any of his as needed hydroxyzine this morning. He denies any other concerns or complaints and states that he has been feeling fairly well since last evening after his emergency room visit. Onset: Sudden Quality: Reports: Other Severity: Mild Improves with: Reports: None Worsens with: Reports: None Associated Symptoms: Reports: No Other Symptoms - Related Data Allergies Allergy/AdvReac Type Severity Reaction Status Date / Time Seasonal Allergy Intermediate Other Uncoded 07/07/20 12:32 Home Meds: Home Meds Lisinopril 20 mg PO DAILY 05/25/18 [History] atorvaSTATin [Lipitor] 10 mg PO BEDTIME 02/01/19 [History] Pantoprazole [ProTONIX] 40 mg PO DAILY 03/22/20 [History] hydrOXYzine HCL [Atarax] 50 mg PO Q8H PRN #12 tab 03/22/20 [Rx] Azithromycin 500 mg PO DAILY #5 tablet 07/06/20 [Rx] Escitalopram [Lexapro] 10 mg PO DAILY 07/06/20 [History] predniSONE 20 mg PO BID 5 Days #10 tab 07/06/20 [Rx] Past Medical History - Past Health History Medical/Surgical History: Denies Medical/Surgical History HEENT History: Reports: Other (See Below) Other HEENT History: nka Cardiovascular History: Reports: High Cholesterol, Hypertension Respiratory History: Reports: Other (See Below) Other Respiratory History: Snoring. Smoker since age 12 Gastrointestinal History: Reports: GERD Other Gastrointestinal History: none Genitourinary History: Reports: Other (See Below) Other Genitourinary History: Microscopic Hematuria Psychiatric History: Reports: Anxiety Other Psychiatric History: Smoker Endocrine/Metabolic History: Reports: Obesity/BMI 30+, Other (See Below) Other Endocrine/Metabolic History: Pre-Diabetes. Last A1C (02/08/2018) = 6.2 Social & Family History - Family History Family Medical History: Unobtainable - Tobacco Use Tobacco Use Status *Q: Current Every Day Tobacco User Years of Tobacco use: 30 Packs/Tins Daily: 0.5 - Caffeine Use Caffeine Use: Reports: None ED ROS GENERAL - Review of Systems Review Of Systems: Comprehensive ROS is negative, except as noted in HPI. Constitutional: Reports: No Symptoms HEENT: Reports: No Symptoms Respiratory: Reports: No Symptoms Cardiovascular: Reports: No Symptoms Endocrine: Reports: No Symptoms GI/Abdominal: Reports: No Symptoms : Reports: No Symptoms Musculoskeletal: Reports: No Symptoms Skin: Reports: No Symptoms Neurological: Reports: No Symptoms Psychiatric: Reports: No Symptoms Hematologic/Lymphatic: Reports: No Symptoms Immunologic: Reports: No Symptoms ED EXAM, GENERAL - Physical Exam Exam: See Below General Appearance: Alert, WD/WN, No Apparent Distress Head: Atraumatic, Normocephalic Neck: Normal Inspection, Supple, Non-Tender, Full Range of Motion Respiratory/Chest: No Respiratory Distress, Lungs Clear, Normal Breath Sounds, No Accessory Muscle Use, Chest Non-Tender Cardiovascular: Normal Peripheral Pulses, Regular Rate, Rhythm, No Rub Back Exam: Normal Inspection, Full Range of Motion Extremities: Normal Inspection, Normal Range of Motion, Non-Tender, Normal Capillary Refill Neurological: Alert, Oriented, CN II-XII Intact, Normal Gait Psychiatric: Anxious Skin Exam: Warm, Dry, Intact, Normal Color Course - Vital Signs Last Recorded V/S: Last Vital Signs Temp 36.9 C 07/07/20 12:25 Pulse 93 07/07/20 12:25 Resp 20 07/07/20 12:25 BP 160/99 H 07/07/20 12:25 Pulse Ox 97 07/07/20 12:25 - Re-Assessments/Exams Free Text/Narrative Re-Assessment/Exam: 07/07/20 12:35 Patient states he already feels better prior to discharge after discussing with the provider regarding his condition. Departure - Departure Time of Disposition: 12:45 Disposition: Home, Self-Care 01 Condition: Good Clinical Impression: Anxiety - Discharge Information *PRESCRIPTION DRUG MONITORING PROGRAM REVIEWED*: Not Applicable *COPY OF PRESCRIPTION DRUG MONITORING REPORT IN PATIENT CARO: Not Applicable Instructions: Managing Anxiety, Adult Additional Instructions: 1. rest 2. increase your water intake 3. Continue all at home medications 4. Activity and diet as tolerated 5. Can take over the counter Tylenol for any pain or discomfort 6. Follow up with PCP if symptoms continue, return, or progress 7. Call with any questions or concerns Sepsis Event Note (ED) - Evaluation Sepsis Screening Result: No Definite Risk - Focused Exam Vital Signs: Vital Signs Temp Pulse Resp BP Pulse Ox 07/07/20 12:25 36.9 C 93 20 160/99 H 97 - Assessment/Plan Assessment:: 1. Anxiety attack Plan: 1. Patient brought along his Hydroxyzine 25 mg tablet. Did instruct the patient to take 2 of his hydroxyzine here in the emergency department 2. Education regarding an appropriate time to take hydroxyzine is especially when he is having increased anxiety. Education also provided to the patient regarding his diagnosis of medications again that was. Scribed him last night and discussed with him last night. 3. Patient and nursing staff was updated regarding the plan of care 4. Education provided the patient regarding activity, diet, rest, [id number] medication modalities, and follow-up care was provided 5. Patient and family are agreeable to the above plan of care 6. All questions and concerns were addressed with the patient and family prior to discharge
== END 2020-07-07 12:45 | disposition home or self-care (01) ==
LOC: VM.ED 12:21
DX: F41.9 Anxiety disorder, unspecified (principal); I10 Essential (primary) hypertension; E78.00 Pure hypercholesterolemia, unspecified; K21.9 Gastro-esophageal reflux disease without esophagitis; E66.9 Obesity, unspecified; Z72.0 Tobacco use; Z79.899 Other long term (current) drug therapy; Z91.048 Other nonmedicinal substance allergy status
CPT/HCPCS: 99283

== ENCOUNTER 2020-07-31 21:35 | Emergency (ER) | payer MEDICAID ==
[2020-07-31] MEDS ORDERED: LORazepam 1 MG Tab PO ONE (21:58)
[2020-07-31 22:27] LABS: CHLORIDE,CL 103 mmol/L (98-107); SODIUM,NA 137 mmol/L (136-145)
[2020-07-31 22:28] LABS: ANION GAP 16.9 mmol/L (5-15)
--- NOTE | 2020-07-31 22:28 | EDM.PDOC ---
ED HPI GENERAL MEDICAL PROBLEM - General Stated Complaint: LIGHT HEADED AND DIZZY Time Seen by Provider: 07/31/20 21:50 Source of Information: Reports: Patient History Limitations: Reports: No Limitations - History of Present Illness INITIAL COMMENTS - FREE TEXT/NARRATIVE: Patient comes emergency department today with complaints of shakiness and lightheadedness. This patient relates that he has had pneumonia in the past and his initial presentation has been shakiness. For the past couple of days he has had increasing shakiness and some lightheadedness. He does have a history of anxiety as well and relates his anxiety has been a little bit more than normal. He he does complain of chills but no fevers. No pain in his chest. No weakness dizziness lightheadedness. No cough or congestion. No shortness of breath difficulty breathing. No vertigo. No syncope. No palpitations. No paresthesias of his upper or lower extremities. No change in the functionality of his upper or lower extremities. No abdominal pain nausea or vomiting. No hematuria dysuria or urinary frequency. No black or tarry stools. He has concerns that he has recurrence of his pneumonia although he has no cough or shortness of breath or difficulty breathing. This patient is well-known to myself as well as the facility pretty regular ER visits especially with anxiety and chest pain. No Covid symptoms no Covid exposure. Chest Pain Score (Numeric/FACES): 2 - Related Data Allergies Allergy/AdvReac Type Severity Reaction Status Date / Time Seasonal Allergy Intermediate Other Uncoded 07/07/20 12:32 Home Meds: Home Meds Lisinopril 20 mg PO DAILY 05/25/18 [History] atorvaSTATin [Lipitor] 10 mg PO BEDTIME 02/01/19 [History] Pantoprazole [ProTONIX] 40 mg PO DAILY 03/22/20 [History] hydrOXYzine HCL [Atarax] 50 mg PO Q8H PRN #12 tab 03/22/20 [Rx] Azithromycin 500 mg PO DAILY #5 tablet 07/06/20 [Rx] Escitalopram [Lexapro] 10 mg PO DAILY 07/06/20 [History] predniSONE 20 mg PO BID 5 Days #10 tab 07/06/20 [Rx] Past Medical History - Past Health History Medical/Surgical History: Denies Medical/Surgical History HEENT History: Reports: Other (See Below) Other HEENT History: nka Cardiovascular History: Reports: High Cholesterol, Hypertension Respiratory History: Reports: Other (See Below) Other Respiratory History: Snoring. Smoker since age 12 Gastrointestinal History: Reports: GERD Other Gastrointestinal History: none Genitourinary History: Reports: Other (See Below) Other Genitourinary History: Microscopic Hematuria Psychiatric History: Reports: Anxiety Other Psychiatric History: Smoker Endocrine/Metabolic History: Reports: Obesity/BMI 30+, Other (See Below) Other Endocrine/Metabolic History: Pre-Diabetes. Last A1C (02/08/2018) = 6.2 Social & Family History - Family History Family Medical History: Unobtainable - Caffeine Use Caffeine Use: Reports: None ED ROS GENERAL - Review of Systems Review Of Systems: Comprehensive ROS is negative, except as noted in HPI. ED EXAM, GENERAL - Physical Exam Exam: See Below Exam Limited By: No Limitations General Appearance: Alert, WD/WN, Anxious (Very anxious. Hands and feet are constantly moving. He appears quite anxious. NO distress. ) Eye Exam: Bilateral Eye: EOMI, PERRL Ears: Normal External Exam, Normal TMs Nose: Normal Inspection, Normal Mucosa Throat/Mouth: Normal Inspection, Normal Lips, Normal Teeth, Normal Oropharynx, Normal Voice, No Airway Compromise Head: Atraumatic, Normocephalic Neck: Normal Inspection, Supple, Non-Tender Respiratory/Chest: No Respiratory Distress, Lungs Clear, Normal Breath Sounds, No Accessory Muscle Use, Chest Non-Tender Cardiovascular: Normal Peripheral Pulses, Regular Rate, Rhythm GI/Abdominal: Normal Bowel Sounds, Soft (Male) Exam: Deferred Rectal (Males) Exam: Deferred Back Exam: Normal Inspection, Full Range of Motion Extremities: Normal Inspection, Normal Range of Motion, Non-Tender, No Pedal Edema, Normal Capillary Refill Neurological: Alert, Oriented, CN II-XII Intact, Normal Cognition, No Motor/Sensory Deficits Psychiatric: Normal Affect, Normal Mood Skin Exam: Warm, Dry, Intact, Normal Color, No Rash Lymphatic: No Adenopathy Course - Vital Signs Last Recorded V/S: Last Vital Signs Temp 98.2 F 07/31/20 22:52 Pulse 103 H 07/31/20 22:52 Resp 22 H 07/31/20 22:52 BP 170/117 H 07/31/20 22:52 Pulse Ox 96 07/31/20 22:52 - Orders/Labs/Meds Labs: Laboratory Tests 07/31/20 07/31/20 Range/Units 22:01 22:01 WBC 13.6 H (4.0-10.0) x10^3/uL RBC 6.22 H (4.5-6.0) x10^6/uL Hgb 18.2 H (14.0-18.0) g/dL Hct 51.1 (40.0-52.0) % MCV 82.2 (78.0-93.0) fL MCH 29.3 (26.0-32.0) pg MCHC 35.6 (32.0-36.0) g/dL RDW Coeff of Ann Marie 13.9 (10.0-15.0) % Plt Count 244 (130-400) x10^3/uL Neut % (Auto) 58.1 (50.0-80.0) % Lymph % (Auto) 33.4 (25.0-50.0) % Young % (Auto) 5.2 (2.0-11.0) % Eos % (Auto) 3.0 (0.0-4.0) % Baso % (Auto) 0.3 (0.2-1.2) % Sodium 137 (136-145) mmol/L Potassium 3.9 (3.5-5.1) mmol/L Chloride 103 (98-107) mmol/L Carbon Dioxide 21 (21-32) mmol/L Anion Gap 16.9 H (5-15) mmol/L BUN 19 H (7-18) mg/dL Creatinine 1.3 (0.70-1.30) mg/dL Est Cr Clr Drug Dosing TNP Estimated GFR (MDRD) 59 Glucose 167 H (74-106) mg/dL Calcium 8.5 (8.5-10.1) mg/dL Corrected Calcium 9.06 (8.5-10.1) mg/dL Total Bilirubin 0.3 (0.2-1.0) mg/dL AST 22 (15-37) U/L ALT 43 (16-63) U/L Alkaline Phosphatase 83 (46-116) U/L Troponin I High Sens 14 (<=76) ng/L C-Reactive Protein 0.8 (<=0.9) mg/dL Total Protein 7.7 (6.4-8.2) g/dL Albumin 3.3 L (3.4-5.0) g/dL Globulin 4.4 Albumin/Globulin Ratio 0.75 Meds: Medications Discontinued Medications Generic Name Dose Route Start Last Admin Trade Name Dongq PRN Reason Stop Dose Admin Lorazepam 1 mg 07/31/20 21:58 07/31/20 22:13 Lorazepam 1 Mg Tab PO 07/31/20 21:59 1 mg ONETIME ONE Administration - Radiology Interpretation Free Text/Narrative:: I did review his chest x-ray from 07-06-20 when he was treated for pneumonia his chest x-ray has al linear scarring left lung base. Bilateral symmetric hyperinflation suggesting underlying COPD. No acute infiltrates are identified. Normal heart size. No effusions. Chest x-ray per radiology shows lungs are clear without acute infiltrates. Heart size is normal. No significant bony abnormalities. - Re-Assessments/Exams Free Text/Narrative Re-Assessment/Exam: 07/31/20 22:39 Initial EKG is unremarkable and unchanged from the past. I did review his past chest x-ray from 07-06-20 diagnosed with pneumonia there was a noted stable linear scarring left lung base. Bilateral symmetric hyperinflation suggesting underlying COPD. No acute infiltrates are identified. Normal heart size. No effusions. Was given a milligram of Ativan orally as he is clearly anxious upon arrival. Chest x-ray per radiology shows no significant abnormalities. Lungs are clear without acute infiltrates. Heart size is normal. No significant bony abnormalities. 07/31/20 23:02 Laboratory evaluation with a mild elevation of his white blood cell count at 13.6, hemoglobin 18.2 consistent with most likely hemoconcentration from dehydration. CMP anion gap 16, BUN 19 normal creatinine of 1.3. Glucose 167. Normal enzymes of his liver. Troponin high-sensitivity normal at 14. C-reactive protein 0.8. This patient was very concerned that he had recurrence of his pneumonia. Although he has no evidence of pneumonia on his chest x-ray at this time or his last visit in the ER. I would be more concerned of his chronic shortness of breath and his cough and congestion with the concerns of COPD that was documented on his previous chest x-ray and he has never had spirometry. He has been using albuterol in the regular basis for his shortness of breath and wheezing and with his history of smoking and his recurrent URIs I would be concerned of underlying obstructive disease. He is much less anxious than he was upon arrival. His shaking and jitteriness and anxiety has resolved with the Ativan. This is not cardiac in nature. We will discharge him home at this time with continued therapies as previous. Albuterol can make his anxiety a little bit worse he is using it couple of times a day almost every day. I would like him to see his primary care provider at the next available appointment for spirometry assessment and I do not want him to start him on anything to augment the evaluation with the spirometry. He is comfortable with this plan his questions are answered. Departure - Departure Time of Disposition: 23:10 Disposition: Home, Self-Care 01 Clinical Impression: Anxiety - Discharge Information Instructions: Managing Anxiety, Adult Referrals: Jasmina Noe PA-C [Primary Care Provider] - Forms: ED Department Discharge Additional Instructions: Continue with your previous medications. See your PCP in the next few weeks for a recheck and have spirometry a breathing test completed to assess for the possibility of COPD Chronic Obstructive Pulmonary Disease/Emphyzema. Return to the ED if new or worsening.
--- NOTE | 2020-07-31 22:31 | PCM.EKG ---
#1 Interpretation EKG Date: 07/31/20 Time: 22:01 Rhythm: NSR Rate (Beats/Min): 103 [place]: Normal P-Wave: Present QRS: Normal ST-T: Normal QT: Normal Comparison: No Change
[2020-07-31 22:57] VITALS: BP 170/117; PULSE 103
--- NOTE | 2020-08-01 08:25 | CR ---
[id number] RAD/RAD Chest PA And Lateral EXAM: FRONTAL AND LATERAL CHEST INDICATION: SHAKEY. COMPARISON: July 06, 2020. DISCUSSION: Hyperinflation suggests underlying COPD or asthma. Chronic scarring the left lung base with no definite acute infiltrates. Normal heart size. No effusions. IMPRESSION: 1. No acute findings. Alex Wheatley MD 08/01/20 0824 Thank you for allowing us to participate in the care of your patient.
== END 2020-07-31 23:45 | disposition home or self-care (01) ==
LOC: VM.ED 21:35
DX: F41.9 Anxiety disorder, unspecified (principal); E78.00 Pure hypercholesterolemia, unspecified; I10 Essential (primary) hypertension; K21.9 Gastro-esophageal reflux disease without esophagitis; F17.200 Nicotine dependence, unspecified, uncomplicated; E66.9 Obesity, unspecified; Z68.41 Body mass index [BMI] 40.0-44.9, adult; Z79.899 Other long term (current) drug therapy; Z91.048 Other nonmedicinal substance allergy status
CPT/HCPCS: 36415; 71046; 80053; 84484; 85025; 86140; 93005; 99284; 99284-25; A9270-GY

== ENCOUNTER 2020-11-17 20:36 | Emergency (ER) | payer BC, MEDICAID ==
[2020-11-17] MEDS ORDERED: Lidocaine 2% 5 ML SDV INJECT ONE (21:04)
--- NOTE | 2020-11-17 21:04 | EDM.PDOC ---
ED HPI GENERAL MEDICAL PROBLEM - General Chief Complaint: Laceration Stated Complaint: LACERATION ON Left 4th toe Time Seen by Provider: 11/17/20 21:02 Source of Information: Reports: Patient - History of Present Illness INITIAL COMMENTS - FREE TEXT/NARRATIVE: Lencho is a 45 y/o male who comes to the ER with a cut to the bottom of his left foot. He stepped on a tool box in his garage and cut the bottom of his left 4th toe. He was wearing some slip on shoes and did not have his boots on like usual. It would not stop bleeding. No other injuries. - Related Data Allergies Allergy/AdvReac Type Severity Reaction Status Date / Time Seasonal Allergy Intermediate Other Uncoded 11/17/20 21:02 Home Meds: Home Meds Lisinopril 20 mg PO DAILY 05/25/18 [History] atorvaSTATin [Lipitor] 10 mg PO BEDTIME 02/01/19 [History] Pantoprazole [ProTONIX] 40 mg PO DAILY 03/22/20 [History] hydrOXYzine HCL [Atarax] 50 mg PO Q8H PRN #12 tab 03/22/20 [Rx] Azithromycin 500 mg PO DAILY #5 tablet 07/06/20 [Rx] Escitalopram [Lexapro] 10 mg PO DAILY 07/06/20 [History] predniSONE 20 mg PO BID 5 Days #10 tab 07/06/20 [Rx] Past Medical History - Past Health History Medical/Surgical History: Denies Medical/Surgical History HEENT History: Reports: Other (See Below) Other HEENT History: nka Cardiovascular History: Reports: High Cholesterol, Hypertension Respiratory History: Reports: Other (See Below) Other Respiratory History: Snoring. Smoker since age 12 Gastrointestinal History: Reports: GERD Other Gastrointestinal History: none Genitourinary History: Reports: Other (See Below) Other Genitourinary History: Microscopic Hematuria Psychiatric History: Reports: Anxiety Other Psychiatric History: Smoker Endocrine/Metabolic History: Reports: Obesity/BMI 30+, Other (See Below) Other Endocrine/Metabolic History: Pre-Diabetes. Last A1C (02/08/2018) = 6.2 Social & Family History - Family History Family Medical History: Unobtainable - Caffeine Use Caffeine Use: Reports: None ED ROS GENERAL - Review of Systems Review Of Systems: See Below Constitutional: Reports: No Symptoms HEENT: Reports: No Symptoms Respiratory: Reports: No Symptoms Cardiovascular: Reports: No Symptoms Endocrine: Reports: No Symptoms GI/Abdominal: Reports: No Symptoms : Reports: No Symptoms Musculoskeletal: Reports: No Symptoms Skin: Reports: No Symptoms, Wound (toe laceration) Neurological: Reports: No Symptoms Psychiatric: Reports: No Symptoms Hematologic/Lymphatic: Reports: No Symptoms Immunologic: Reports: No Symptoms ED EXAM, SKIN/RASH Exam: See Below General Appearance: Alert, WD/WN, No Apparent Distress (Adult male) Ears: Hearing Grossly Normal Throat/Mouth: Normal Voice Head: Atraumatic, Normocephalic Respiratory/Chest: No Respiratory Distress Cardiovascular: Regular Rate, Rhythm, No Murmur GI/Abdominal: Soft (Male) Exam: Deferred Rectal (Males) Exam: Deferred Extremities: Normal Inspection, Normal Range of Motion Neurological: Alert, Oriented, CN II-XII Intact Skin: Warm, Dry, Intact, Normal Color, Wound/Incision Location, Skin: Lower Extremity, Left (note 1.5cm laceration to the bottom of the left 4th toe in the skin crease, mild bleeding) Lymphatic: No Adenopathy Course - Vital Signs Text/Narrative:: 2101 The patient was seen by the MANAGER ACUTE. The laceration was repaired. See4 Procedure Note Procedure Note Laceration Repair Following verbal consent of the patient, risks, benefits, and alternatives were reviewed. The wound on the left 4th toe was prepped with Betadine. Lidocaine 2% was used for local anesthesia. 2 interrupted sutures of 4-0 Vicryl was used for wound closure. Dressing was applied. Wound care instructions were reviewed. The patient tolerated the procedure well. Last Tetanus was verified 03/2016. Tdap was not given today. EBL=minimal Written instructions were given and the patient left the ER in stable condition. - Orders/Labs/Meds Meds: Medications Discontinued Medications Generic Name Dose Route Start Last Admin Trade Name Freq PRN Reason Stop Dose Admin Lidocaine 5 ml 11/17/20 21:04 Lidocaine 2% 5 Ml Sdv INJECT 11/17/20 21:05 ONETIME ONE Departure - Departure Time of Disposition: 21:20 Disposition: Home, Self-Care 01 Condition: Good Clinical Impression: Accidental injury Toe laceration Qualifiers: Encounter type: initial encounter Toe: lesser toe Damage to nail status: without damage Foreign body presence: without foreign body Laterality: left Qualified Code(s): S91.115A - Laceration without foreign body of left lesser toe(s) without damage to nail, initial encounter - Discharge Information *PRESCRIPTION DRUG MONITORING PROGRAM REVIEWED*: Not Applicable *COPY OF PRESCRIPTION DRUG MONITORING REPORT IN PATIENT CARO: Not Applicable Instructions: Laceration Care, Adult Referrals: Jasmina Noe PA-C [Primary Care Provider] - Forms: ED Department Discharge Additional Instructions: -Ibuprofen 200mg 3 tablets oral every 6 hours as needed for pain -Acetaminophen 325mg 2-3 tablets oral every 4-6 hours as needed for pain -Keep dressing to wound dry and intact for 24 hours, then you may wash the wound daily with soap and water. -Watch for signs of infection and seek care at the clinic or ER if needed -The sutures that were placed today will dissolve over the next 2-3 weeks, so you do not need to return to the clinic for removal. Allow them to dissolve and and do note attempt to pick or cut them out for at least 2 weeks. -Your Tetanus was not updated at today's visit. Last TDap was 03/2016. - Assessment/Plan Assessment:: 1)Left 4th Toe Laceration 2)Accidental Injury
[2020-11-18 03:04] VITALS: BP 145/99; PULSE 108
== END 2020-11-17 21:24 | disposition home or self-care (01) ==
LOC: VM.ED 20:36
DX: S91.115A Laceration without foreign body of left lesser toe(s) without damage to nail, initial encounter (principal); E78.00 Pure hypercholesterolemia, unspecified; I10 Essential (primary) hypertension; K21.9 Gastro-esophageal reflux disease without esophagitis; E66.9 Obesity, unspecified; Z68.41 Body mass index [BMI] 40.0-44.9, adult; Z91.048 Other nonmedicinal substance allergy status; Z79.899 Other long term (current) drug therapy; W22.8XXA Striking against or struck by other objects, initial encounter; Y92.59 Other trade areas as the place of occurrence of the external cause
CPT/HCPCS: 12001; 99282-25; 99283

== ENCOUNTER 2021-01-13 09:23 | Emergency (ER) | payer BC, MEDICAID ==
[2021-01-13 09:38] VITALS: BP 145/91; PULSE 89
[2021-01-13] MEDS ORDERED: Take Home: Amoxicillin/Clavulanate K 875-125 MG Tab, 2 Tab Pack PO ONE (09:44)
[2021-01-13] MEDS ORDERED: Take Home: Acetaminophen/Codeine 300 MG/30 MG, 5 Tab Pack PO ONE (09:44)
[2021-01-13] MEDS ORDERED: Amoxicillin/Clavulanate K 875-125 MG Tab ONE (09:49)
--- NOTE | 2021-01-13 11:29 | EDM.PDOC ---
ED HPI GENERAL MEDICAL PROBLEM - General Chief Complaint: ENT Problem Stated Complaint: POSSIBLE SINUS INFECTION Time Seen by Provider: 01/13/21 09:34 Source of Information: Reports: Patient History Limitations: Reports: No Limitations - History of Present Illness INITIAL COMMENTS - FREE TEXT/NARRATIVE: Pt. presents to ER with complaints of dental pain/sinus congestion. Pt. has a history of very poor dentition and is scheduled to undergo a complete extraction of all of his decayed teeth in 2 months. He states that his upper incisors are giving him trouble today. He states that he has been experiencing sinus congestion with purulent mucus discharge for the past several days as well. Denies any fever or chills. No chest pain or shortness of breath. No problems with cough or sore throat. Face/Facial Pain Score (Numeric/FACES): 8 - Related Data Allergies Allergy/AdvReac Type Severity Reaction Status Date / Time Seasonal Allergy Intermediate Other Uncoded 01/13/21 09:34 Home Meds: Home Meds Lisinopril 20 mg PO DAILY 05/25/18 [History] Aspirin 81 mg PO DAILY 11/18/20 [History] Escitalopram Oxalate [Lexapro] 20 mg PO DAILY 11/18/20 [History] Rosuvastatin [Crestor] 5 mg PO DAILY 01/13/21 [History] Past Medical History - Past Health History Medical/Surgical History: Denies Medical/Surgical History HEENT History: Reports: Other (See Below) Other HEENT History: nka Cardiovascular History: Reports: High Cholesterol, Hypertension Respiratory History: Reports: Other (See Below) Other Respiratory History: Snoring. Smoker since age 12 Gastrointestinal History: Reports: GERD Other Gastrointestinal History: none Genitourinary History: Reports: Other (See Below) Other Genitourinary History: Microscopic Hematuria Psychiatric History: Reports: Anxiety Other Psychiatric History: Smoker Endocrine/Metabolic History: Reports: Obesity/BMI 30+, Other (See Below) Other Endocrine/Metabolic History: Pre-Diabetes. Last A1C (02/08/2018) = 6.2 Social & Family History - Family History Family Medical History: Unobtainable - Tobacco Use Tobacco Use Status *Q: Current Every Day Tobacco User Years of Tobacco use: 30 Packs/Tins Daily: 1 - Caffeine Use Caffeine Use: Reports: None ED ROS GENERAL - Review of Systems Review Of Systems: Comprehensive ROS is negative, except as noted in HPI. ED EXAM, GENERAL - Physical Exam Exam: See Below Exam Limited By: No Limitations General Appearance: Alert, WD/WN, No Apparent Distress Throat/Mouth: Normal Inspection, Normal Lips, Normal Oropharynx, Normal Voice, No Airway Compromise, Other (dental pain, significant caries to most teeth.) Head: Atraumatic, Normocephalic Neck: Normal Inspection, Supple, Non-Tender, Full Range of Motion Course - Vital Signs Last Recorded V/S: Last Vital Signs Temp 37.1 C 01/13/21 09:34 Pulse 89 01/13/21 09:34 Resp 16 01/13/21 09:34 BP 145/91 H 01/13/21 09:34 Pulse Ox 96 01/13/21 09:34 - Orders/Labs/Meds Meds: Medications Discontinued Medications Generic Name Dose Route Start Last Admin Trade Name Ignacio PRN Reason Stop Dose Admin Acetaminophen/Codeine Phosphate 2 packet 01/13/21 09:44 01/13/21 09:50 Take Home: Acetaminophen/Codeine 300 Mg/30 Mg, 5 Tab Pack PO 01/13/21 09:45 2 packet ONETIME ONE Administration Amoxicillin/Clavulanate Potassium 2 packet 01/13/21 09:44 01/13/21 09:50 Take Home: Amoxicillin/Clavulanate K 875-125 Mg Tab, 2 Tab Pack PO 01/13/21 09:45 2 packet ONETIME ONE Administration Amoxicillin/Clavulanate Potassium Confirm 01/13/21 09:49 Amoxicillin/Clavulanate K 875-125 Mg Tab Administered 01/13/21 09:50 Dose 2 tab .ROUTE .STK-MED ONE Departure - Departure Time of Disposition: 10:15 Disposition: Home, Self-Care 01 Clinical Impression: Dental caries - Discharge Information Instructions: Amoxicillin; Clavulanic Acid Tablets, Acetaminophen; Codeine tablets Referrals: Jasmina Noe PA-C [Primary Care Provider] - Forms: ED Department Discharge Additional Instructions: Augmentin 875mg 1 tab twice daily for 10 days Tylenol #3 1 every 6 hours as needed for pain Follow-up in clinic in 7-10 days Sepsis Event Note (ED) - Evaluation Sepsis Screening Result: No Definite Risk - Focused Exam Vital Signs: Vital Signs Temp Pulse Resp BP Pulse Ox 01/13/21 09:34 37.1 C 89 16 145/91 H 96 - Problem List Review Problem List Initiated/Reviewed/Updated: Yes - Assessment/Plan Plan: Augmentin 875mg 1 tab twice daily for 10 days Tylenol #3 1 every 6 hours as needed for pain Follow-up in clinic in 7-10 days
== END 2021-01-13 10:00 | disposition home or self-care (01) ==
LOC: VM.ED 09:23
DX: K02.9 Dental caries, unspecified (principal); E78.00 Pure hypercholesterolemia, unspecified; I10 Essential (primary) hypertension; E66.9 Obesity, unspecified; Z68.42 Body mass index [BMI] 45.0-49.9, adult; Z72.0 Tobacco use; Z91.09 Other allergy status, other than to drugs and biological substances
CPT/HCPCS: 99282; 99283; A9270-GY

== ENCOUNTER 2021-03-02 08:37 | Emergency (ER) | payer BC, MEDICAID ==
[2021-03-02 09:16] VITALS: BP 131/85; PULSE 86
[2021-03-02] MEDS: Ketorolac 30 MG/ML SDV IM ONE (09:22)
--- NOTE | 2021-03-02 09:24 | EDM.PDOC ---
ED HPI GENERAL MEDICAL PROBLEM - General Chief Complaint: General Stated Complaint: INFECTION BY TOOTH Time Seen by Provider: 03/02/21 08:45 Source of Information: Reports: Patient History Limitations: Reports: No Limitations - History of Present Illness INITIAL COMMENTS - FREE TEXT/NARRATIVE: Patient presents this morning with ongoing dental pain for years but this episodes been going on for about 3 weeks. States he has not been able to get an appointment with a dentist until March and not able to get in with his primary doctor. He has had ongoing dental issues intermittent abscesses port intention and fractures for years he said this episode though he rates pain about a 7 out of 10 upfront on the maxillary aspect of the jaw he points around #7 8 9 He denies any pain with chewing or swallowing no problems eating or drinking no nausea vomiting headaches or sinus pain. Duration: Chronic Severity: Moderate Improves with: Reports: Medication Worsens with: Reports: None Associated Symptoms: Reports: No Other Symptoms. Denies: Fever/Chills, Headaches, Loss of Appetite Oral/Mouth Pain Score (Numeric/FACES): 7 - Related Data Allergies Allergy/AdvReac Type Severity Reaction Status Date / Time Seasonal Allergy Intermediate Other Uncoded 01/13/21 09:34 Home Meds: Home Meds Lisinopril 20 mg PO DAILY 05/25/18 [History] Aspirin 81 mg PO DAILY 11/18/20 [History] Escitalopram Oxalate [Lexapro] 20 mg PO DAILY 11/18/20 [History] Rosuvastatin [Crestor] 5 mg PO DAILY 01/13/21 [History] Past Medical History - Past Health History Medical/Surgical History: Denies Medical/Surgical History HEENT History: Reports: Other (See Below) Other HEENT History: nka Cardiovascular History: Reports: High Cholesterol, Hypertension Respiratory History: Reports: Other (See Below) Other Respiratory History: Snoring. Smoker since age 12 Gastrointestinal History: Reports: GERD Other Gastrointestinal History: none Genitourinary History: Reports: Other (See Below) Other Genitourinary History: Microscopic Hematuria Psychiatric History: Reports: Anxiety Other Psychiatric History: Smoker Endocrine/Metabolic History: Reports: Obesity/BMI 30+, Other (See Below) Other Endocrine/Metabolic History: Pre-Diabetes. Last A1C (02/08/2018) = 6.2 Social & Family History - Family History Family Medical History: Unobtainable - Caffeine Use Caffeine Use: Reports: None ED ROS GENERAL - Review of Systems Review Of Systems: See Below Constitutional: Reports: No Symptoms. Denies: Fever, Chills, Malaise, Weakness HEENT: Reports: Dental Pain. Denies: Ear Discharge, Ear Pain, Eye Discharge, Eye Pain, Nose Pain, Rhinitis, Sinus Problem, Throat Pain, Vision Change Respiratory: Reports: No Symptoms Cardiovascular: Reports: No Symptoms Endocrine: Reports: No Symptoms GI/Abdominal: Reports: No Symptoms : Reports: No Symptoms Musculoskeletal: Reports: No Symptoms Skin: Reports: No Symptoms Neurological: Reports: No Symptoms Psychiatric: Reports: No Symptoms Hematologic/Lymphatic: Reports: No Symptoms Immunologic: Reports: No Symptoms ED EXAM, GENERAL - Physical Exam Exam: See Below Exam Limited By: No Limitations General Appearance: Alert, WD/WN, No Apparent Distress Eye Exam: Bilateral Eye: EOMI, Normal Inspection, PERRL Ears: Normal External Exam, Normal Canal, Hearing Grossly Normal, Normal TMs Nose: Normal Inspection, Normal Mucosa, No Blood Throat/Mouth: Normal Inspection, Normal Lips, Normal Oropharynx, Normal Voice, No Airway Compromise, Other (Scattered very poor dentintion there is a mild apical abscess over #7 and 8 with minimal tenderness to palpation there is no tenderness palpation over the maxillary or ethmoid sinuses neck is full range of motion no adenopathy uvula is in line). No: Normal Teeth, Normal Gums Head: Atraumatic Neck: Normal Inspection, Supple, Non-Tender, Full Range of Motion. No: Limited Range of Motion, Lymphadenopathy (L), Lymphadenopathy (R) Respiratory/Chest: No Respiratory Distress, Lungs Clear, Normal Breath Sounds, No Accessory Muscle Use Cardiovascular: Normal Peripheral Pulses, Regular Rate, Rhythm, No Edema, No Gallop, No JVD, No Murmur, No Rub Neurological: Alert, Oriented, CN II-XII Intact, Normal Cognition, Normal Gait, No Motor/Sensory Deficits Psychiatric: Normal Affect, Normal Mood Skin Exam: Warm, Dry, Intact, Normal Color, No Rash Lymphatic: No Adenopathy Course - Vital Signs Text/Narrative:: We will treat with 30 mg Toradol IM educated patient warm salt water gargles with peroxide Listerine gargles and the need to follow-up with a dentist. Clindamycin 300 mg 1 every 8 hours x10 days patient is educated take probiotic with it Last Recorded V/S: Last Vital Signs Temp 36.1 C 03/02/21 09:13 Pulse 86 03/02/21 09:13 Resp 18 03/02/21 09:13 BP 131/85 03/02/21 09:13 Pulse Ox 93 L 03/02/21 09:13 - Orders/Labs/Meds Meds: Medications Discontinued Medications Generic Name Dose Route Start Last Admin Trade Name Ignacio PRN Reason Stop Dose Admin Ketorolac Tromethamine 30 mg 03/02/21 09:08 03/02/21 09:22 Ketorolac 30 Mg/Ml Sdv IM 03/02/21 09:09 30 mg ONETIME ONE Administration Departure - Departure Time of Disposition: 09:15 Disposition: Home, Self-Care 01 Condition: Good Clinical Impression: Dental abrasion - Discharge Information *PRESCRIPTION DRUG MONITORING PROGRAM REVIEWED*: No *COPY OF PRESCRIPTION DRUG MONITORING REPORT IN PATIENT CARO: No Instructions: Dental Abscess, [id number] Referrals: Jasmina Noe PA-C [Primary Care Provider] - Forms: ED Department Discharge Additional Instructions: Take antibiotic as directed clindamycin 300 mg 1 tablet every 8 hours x10 days I recommend taking a probiotic with it Follow-up with a dentist as soon as possible Gargle with warm salt water and peroxide every 4-6 hours as tolerated gargle with Listerine as tolerated as directed Return to the emergency room if anything changes or gets worse Sepsis Event Note (ED) - Focused Exam Vital Signs: Vital Signs Temp Pulse Resp BP Pulse Ox 03/02/21 09:13 36.1 C 86 18 131/85 93 L - Problem List & Annotations (1) Dental abscess SNOMED Code(s): 520814992 Code(s): K04.7 - PERIAPICAL ABSCESS WITHOUT SINUS Status: Acute Priority: Low
== END 2021-03-02 09:30 | disposition home or self-care (01) ==
LOC: VM.ED 08:37
DX: K03.1 Abrasion of teeth (principal); E78.00 Pure hypercholesterolemia, unspecified; I10 Essential (primary) hypertension; F17.200 Nicotine dependence, unspecified, uncomplicated; E66.9 Obesity, unspecified; Z68.42 Body mass index [BMI] 45.0-49.9, adult; Z91.048 Other nonmedicinal substance allergy status; Z79.82 Long term (current) use of aspirin; Z79.899 Other long term (current) drug therapy
CPT/HCPCS: 96372; 99282; J1885; 99283

== ENCOUNTER 2021-05-27 19:00 | Emergency (ER) | payer BC ==
[2021-05-27 19:54] VITALS: BP 139/90; PULSE 97
== END 2021-05-27 19:45 | disposition home or self-care (01) ==
LOC: VM.ED 19:00
DX: J45.20 Mild intermittent asthma, uncomplicated (principal); E78.00 Pure hypercholesterolemia, unspecified; I10 Essential (primary) hypertension; F17.200 Nicotine dependence, unspecified, uncomplicated; E66.9 Obesity, unspecified; Z68.39 Body mass index [BMI] 39.0-39.9, adult; Z91.048 Other nonmedicinal substance allergy status; Z79.82 Long term (current) use of aspirin; Z79.899 Other long term (current) drug therapy
CPT/HCPCS: 99283

== ENCOUNTER 2021-12-30 21:32 | Emergency (ER) | payer BC, MEDICAID ==
[2021-12-30] MEDS ORDERED: Sodium Chloride 0.9% 10 ML Syringe FLUSH PRN (21:54)
[2021-12-30] MEDS ORDERED: Dexamethasone 4 MG/ML SDV IVPUSH ONE (21:56)
[2021-12-30] MEDS ORDERED: Aspirin 81 MG Tab.Chew PO ONE (22:01)
[2021-12-30] MEDS ORDERED: cloNIDine 0.1 MG Tab PO ONE (22:01)
[2021-12-30 22:35] LABS: ANION GAP 16.3 mmol/L (5-15)
[2021-12-30 23:10] VITALS: BP 131/84; PULSE 93
== END 2021-12-30 23:05 | disposition home or self-care (01) ==
LOC: VM.ED 21:32
DX: I20.8 Other forms of angina pectoris (principal); F41.9 Anxiety disorder, unspecified; E78.00 Pure hypercholesterolemia, unspecified; I10 Essential (primary) hypertension; E66.9 Obesity, unspecified; Z68.41 Body mass index [BMI] 40.0-44.9, adult; Z28.310 Unvaccinated for COVID-19; Z91.09 Other allergy status, other than to drugs and biological substances; Z79.82 Long term (current) use of aspirin; Z79.899 Other long term (current) drug therapy; Z20.822 Contact with and (suspected) exposure to COVID-19
CPT/HCPCS: 71045; 80053; 83880; 84484; 85025; 93005; 93010; 96374; 99284; 99285-25; A9270-GY; J1100; U0002

== ENCOUNTER 2022-05-23 18:23 | Emergency (ER) | payer BC, MEDICAID ==
[2022-05-23 19:01] VITALS: BP 144/89; PULSE 112
[2022-05-23] MEDS ORDERED: Take Home: Ketorolac 10 MG Tab, 4 Tab Pack PO ONE (20:01)
== END 2022-05-23 20:16 | disposition home or self-care (01) ==
LOC: VM.ED 18:23
DX: M12.812 Other specific arthropathies, not elsewhere classified, left shoulder (principal); E78.00 Pure hypercholesterolemia, unspecified; I10 Essential (primary) hypertension; E66.9 Obesity, unspecified; Z68.41 Body mass index [BMI] 40.0-44.9, adult; Z91.048 Other nonmedicinal substance allergy status; Z79.899 Other long term (current) drug therapy; Z79.82 Long term (current) use of aspirin
CPT/HCPCS: 73030-LT; 99283; A9270-GY